=== PATIENT | male | born 1955 | race African-American/Black ===

== ENCOUNTER 2020-10-17 12:19 | Inpatient (IN) | payer OTHER, SELFPAY ==
[2020-10-17] VITALS (15 sets, daily range): BP systolic 114–137; BP diastolic 67–85; PULSE 86–122; RESP 20–37; TEMP 36.2–37.2; O2SAT 83–98; BMI 25.0
--- NOTE | ~2020-10-17 | XR_ITS ---
XR chest PICC line 10/23/2020 14:54 Indication: PICC line placement Procedure: AP portable chest Comparison: Comparison to multiple prior studies sequentially, with oldest reviewed study dated 10/17. Findings: There is a PICC line coiled in the left axilla. Small left apical pneumothorax. Pneumomedia stinum unchanged. Subcutaneous gas in the neck bilaterally. Diffuse bilateral airspace disease may re present pneumonia or edema. No significant effusion. Impression: 1: Left sided PICC line catheter coiled in the left axilla. 2: Otherwise, no significant change. Reviewed, dictated and finalized at location A. Impression: 1: Left sided PICC line catheter coiled in the left axilla. 2: Otherwise, no significant change.
--- NOTE | ~2020-10-17 | XR_ITS ---
EXAMINATION: XR chest 1V portable DATE: 10/24/2020 06:24 INDICATION: Shortness of breath TECHNIQUE: frontal view of the chest was obtained. COMPARISON: Chest radiograph dated 10/23/2020 FINDINGS: Unchanged small left apical pneumothorax. Small amount of pneumomediastinum as well as subcutaneous e mphysema projects over the bilateral neck and upper chest. No right-sided pneumothorax. Unchanged mil d bilateral patchy airspace opacities in the mid and lower lung zones. No pleural effusion. The cardi omediastinal silhouette is normal. IMPRESSION: 1. Unchanged pneumomediastinum, small left apical pneumothorax and subcutaneous gas at the bilateral neck and upper chest. 2. Unchanged patchy bilateral lung disease which could represent pneumonia, pulmonary edema, atelecta sis or some combination thereof. Reviewed, dictated and finalized at location A. IMPRESSION: 1. Unchanged pneumomediastinum, small left apical pneumothorax and subcutaneous gas at the bilateral neck and upper chest. 2. Unchanged patchy bilateral lung disease which could represent pneumonia, pul monary edema, atelectasis or some combination thereof.
--- NOTE | ~2020-10-17 | US_ITS ---
US abdomen limited DATE: 10/18/2020 08:30 INDICATION: Elevated liver function tests TECHNIQUE: Real-time imaging of liver, pancreas, gallbladder by portable technique COMPARISON: None FINDINGS: The pancreas is obscured by bowel gas. No hepatic space-occupying mass lesion is evident. Normal hepatopedal portal venous flow direction. Approximately 3 x 6 mm nondependent filling defect of the gallbladder, likely a polyp. There is an approximately 6 mm echogenic filling defect of the neck of the gallbladder with posterior shadowing, suggesting cholelithiasis. No gallbladder wall thickening or abnormal pericholecystic fluid collection is detected. Negative son ographic Mendez's sign. The common bile duct measures 5 mm, normal. IMPRESSION: Gallbladder polyp and probable cholelithiasis Reviewed, dictated and finalized at Location A. Reviewed, dictated and finalized at location A.
--- NOTE | ~2020-10-17 | XR_ITS ---
XR chest 1V portable 10/23/2020 13:06 Indication: Follow-up left pneumothorax Procedure: AP portable chest Comparison: Comparison to multiple prior studies sequentially, with oldest reviewed study dated 06/14. Findings: Small persistent left apical pneumothorax. Large pneumomediastinum with subcutaneous gas in the supraclavicular regions bilaterally. Diffuse bilateral airspace disease unchanged. No significan t effusion. Impression: 1: Stable small left apical pneumothorax. 2: Stable large pneumomediastinum. 3: Extensive diffuse bilateral airspace disease, compatible with pneumonia. Reviewed, dictated and finalized at location A. Impression: 1: Stable small left apical pneumothorax. 2: Stable large pneumomediastinum. 3: Extensive diffuse bilateral airspace disease, compatible with pneumonia.
--- NOTE | ~2020-10-17 | XR_ITS ---
EXAMINATION: XR chest 1V portable DATE: 10/28/2020 15:40 INDICATION: Pneumonia. TECHNIQUE: A single frontal view of the chest was obtained. COMPARISON: Chest single view 10/26/2020, chest CT 10/22/2020 FINDINGS: Again seen is pneumomediastinum. There is gas in the neck soft tissues bilaterally. There a re patchy airspace opacities throughout the lungs bilaterally. No pleural effusion or pneumothorax. T he heart size is normal. IMPRESSION: 1. Stable diffuse lung disease, consistent with COVID-19 pneumonia. 2. Stable pneumomediastinum and body wall subcutaneous emphysema. Reviewed, dictated and finalized at location A.
--- NOTE | ~2020-10-17 | XR_ITS ---
EXAMINATION: XR chest 1V portable EXAM DATE: 10/22/2020 15:02 INDICATION: pneumomediastinum TECHNIQUE: Portable AP frontal chest x-ray was obtained. Comparison is made to prior examination from 10/17/2020. FINDINGS: Development of large amount of pneumomediastinum extending into the neck. Groundglass airsp geraldine disease with relative sparing of the left upper lung zone, mild progression compared to prior antonio dy. Cardiomediastinal silhouette is normal. There is no pneumothorax suspected. There are no pleural effusions. IMPRESSION: 1. Large pneumomediastinum. 2. Moderate amount of confluent airspace disease bilaterally. Reviewed, dictated and finalized at location B.
--- NOTE | ~2020-10-17 | CT_ITS ---
EXAMINATION: CTA chest PE protocol EXAM DATE: 10/22/2020 12:42 INDICATION: R/o PE, cavitary lesion with + fungal. Shortness of breath. COVID pneumonia. TECHNIQUE: Spiral CTA of the chest (pulmonary arteries) was performed with 100 cc Omnipaque 350 intr avenous contrast injection. Images were acquired during the pulmonary arterial phase. Coronal maxi mum intensity projection 3D-reconstructions were created by the technologist on dedicated workstation . Axial, coronal and sagittal reformatted images were reviewed. The dose-length product (DLP) for t his examination was 705.91 mGy-cm. The exposure was tailored according to patient size (auto mA exp osure control), and iterative reconstruction (ASIR) was used as additional dose reduction technique. There is no prior study for comparison. FINDINGS: Significant limitations from respiratory motion. No pulmonary emboli within the main right and left pulmonary arteries. Otherwise cannot evaluate the arteries due to respiratory motion. There is massive amount of pneumomediastinum. No pneumothorax. There is diffuse bilateral groundglass airsp geraldine disease consistent with COVID pneumonia although other etiologies can cause similar appearance. No thoracic aortic dissection. There are no pleural or pericardial effusions. Small amount of low er lobe segmental bronchial debris. There is no mediastinal, hilar or axillary lymphadenopathy. Heart normal in size. There is mild coronary arterial calcification, arterial sclerosis. Upper abd omen is unremarkable. There is thoracic spondylosis without osteoblastic or osteolytic lesions iden tified. IMPRESSION: 1. Limited exam. No saddle embolus. 2. Massive pneumomediastinum. No pneumothorax. 3. Diffuse groundglass airspace disease consistent with COVID pneumonia. I discussed these findings with Teodora Bourne PA-C at 10/22/2020 13:16 CDT. Reviewed, dictated and finalized at location B.
--- NOTE | ~2020-10-17 | XR_ITS ---
XR chest 1V portable 10/23/2020 05:36 Indication: Pneumomediastinum Procedure: AP portable chest Comparison: Comparison to multiple prior studies sequentially, with oldest reviewed study dated 06/14. Findings: Large pneumomediastinum. There is subcutaneous gas in the neck bilaterally. Diffuse bilater al airspace disease, compatible with pneumonia. No significant effusion. Small left apical pneumothor ax. Impression: 1: Small left apical pneumothorax. 2: Large pneumomediastinum. 3: Diffuse bilateral airspace disease, compatible with pneumonia. Dr. eSa Adair discussed with the [facility] Suzanna steven, at 10/23/2020 06:44 CDT. Reviewed, dictated and finalized at location A. Impression: 1: Small left apical pneumothorax. 2: Large pneumomediastinum. 3: Diffuse bilateral airspace disease, compatible with pneumonia. Dr. Sea Adair discussed with the [facility] Suzanna steven, at 10/23/2020 06:44 CDT.
--- NOTE | ~2020-10-17 | XR_ITS ---
EXAMINATION: XR chest 1V portable DATE: 10/26/2020 06:01 INDICATION: COVID pneumonia and pneumomediastinum TECHNIQUE: frontal view of the chest was obtained. COMPARISON: Chest radiograph dated 10/25/2020 FINDINGS: The prior small left pneumothorax is decreased in size now nearly indiscernible at the apex. Pneumome diastinum and subcutaneous emphysema at the bilateral neck and supraclavicular regions is without sig nificant interval change. Also without significant interval change or patchy airspace opacities throu ghout both lungs relatively sparing the left upper lung zone. No pleural effusion or right-sided pneu mothorax. The cardiomediastinal silhouette is normal. IMPRESSION: 1. Near complete resolution of prior small left pneumothorax. 2. Persistent pneumomediastinum and subcutaneous emphysema at the bilateral neck and supraclavicular regions. 3. No significant change in diffuse bilateral lung disease relatively sparing the left upper lung whi ch could represent pneumonia, pulmonary edema, atelectasis or some combination thereof. Reviewed, dictated and finalized at location A. IMPRESSION: 1. Near complete resolution of prior small left pneumothorax. 2. Persistent pneumomediastinum and subcutaneous emphysema at the bilateral nec k and supraclavicular regions. 3. No significant change in diffuse bilateral lung disease relatively sparing t he left upper lung which could represent pneumonia, pulmonary edema, atelectasi s or some combination thereof.
--- NOTE | ~2020-10-17 | XR_ITS ---
EXAMINATION: XR chest 1V portable DATE: 10/25/2020 05:51 INDICATION: Pneumomediastinum TECHNIQUE: frontal view of the chest was obtained. COMPARISON: Chest radiograph dated 10/24/2020 FINDINGS: No significant interval change in a small left pneumothorax, pneumothorax and subcutaneous gas at the bilateral neck and supraclavicular regions. No significant change in groundglass and patchy airspace opacities throughout both lungs relatively sparing the left upper lung zone. No pleural effusion or right-sided pneumothorax. The cardiomediastinal silhouette is normal. IMPRESSION: 1. Unchanged pneumomediastinum, small left apical pneumothorax and subcutaneous gas at the lateral ne ck and supraclavicular regions. 2. Unchanged groundglass and patchy bilateral lung disease which could represent pneumonia, pulmonary edema, atelectasis or some combination thereof. Reviewed, dictated and finalized at location A. IMPRESSION: 1. Unchanged pneumomediastinum, small left apical pneumothorax and subcutaneous gas at the lateral neck and supraclavicular regions. 2. Unchanged groundglass and patchy bilateral lung disease which could represen t pneumonia, pulmonary edema, atelectasis or some combination thereof.
--- NOTE | ~2020-10-17 | XR_ITS ---
XR chest 1V portable DATE: 10/17/2020 12:38 INDICATION: Shortness of breath. Chest pain, fever. Covid-positive. TECHNIQUE: Portable AP chest on 10/17/2020 at 1233 hours COMPARISON: 06/14/2017 AP and lateral Chest FINDINGS: There are patchy infiltrates primarily in the mid and greater extent lower lung zones, most likely due to bilateral pneumonia given the fact that heart size is normal and the clinical history of fever. No pleural effusion or pneumothorax. No hilar or mediastinal enlargement. IMPRESSION: Bilateral pulmonary infiltrates, likely due to pneumonia Reviewed, dictated and finalized at location A.
--- NOTE | 2020-10-17 12:23 | ECG_ITS ---
Measurements Intervals [place] Rate: 111 P: 63 [place]: 185 QRS: 86 QRSD: 90 T: 28 QT: 303 QTc: 412 Interpretive Statements SINUS TACHYCARDIA NONCONDUCTED PREMATURE ATRIAL COMPLEX POSSIBLE LEFT ATRIAL ENLARGEMENT BORDERLINE T WAVE ABNORMALITY- INFERIOR LEADS BASELINE ARTIFACT- I, II, III, AVL, V4-V6 ABNORMAL ECG Electronically Signed On 10-17-2020 17:06:52 CDT by Godwin Mortensen D.O.
[2020-10-17 12:43] LABS: Basophils Percent Auto 0.2 % (0.2-1.2); Hematocrit 43.4 % (42.0-52.0); Hemoglobin 14.7 g/dL (14.0-18.0); Lymphocytes Absolute Auto 1.22 K/mm3 (0.9-3.2); Lymphocytes Percent Auto 11.8 % (18.3-44.2); Mean Corpuscular HGB Conc 33.9 g/dl (32-36); Mean Corpuscular Hemoglobin 27.3 pg (26-34); Mean Corpuscular Volume 80.7 fl (80-100); Mean Platelet Volume 12.8 fl (7.4-10.4); Monocytes Absolute Auto 0.6 K/mm3 (0.1-0.6); Monocytes Percent Auto 5.7 % (2.6-8.5); Neutrophils Absolute Auto 8.4 K/mm3 (1.3-6.7); Neutrophils Percent Auto 81.3 % (45.5-73.1); Platelet Count Result 179 k/mm3 (150-375); Red Blood Count 5.38 M/mm3 (4.6-6.20); Red Cell Distribution Width 13.4 % (11.5-14.5); White Blood Count 10.3 K/mm3 (4.5-10.0)
--- NOTE | 2020-10-17 12:45 | ED.SOB ---
HPI - SOB/Dyspnea General Chief Complaint: Shortness of Breath/Dyspnea Stated Complaint: diff breathing/covid Time Seen by Provider: 10/17/20 12:37 History of Present Illness HPI Narrative: 65 yo male w/ h/o polio, htn presents to the ED for SOB. He reports SOB for the past 2 weeks. Worsening. Positive home COVID test. RA O2 saturation 82% per EMS. No chest pain. Related Data Home Medications Medication Instructions Recorded Confirmed amlodipine 5 mg PO DAILY 10/17/20 Allergies Allergy/AdvReac Type Severity Reaction Status Date / Time No Known Allergies Allergy Verified 10/17/20 13:01 Review of Systems Review of Systems: ROS unobtainable: Yes unobtainable due to medical condition Constitutional: Constitutional: Reports weakness ENT: Denies sore throat Cardiovascular: Cardiovascular: Denies chest pain Respiratory: Respiratory: Reports chest congestion, Reports cough and Reports dyspnea Gastrointestinal: Gastrointestinal: Reports nausea Neurologic: Reports weakness PMFSH Past Medical History Medical History Hypertension Polio Social History Social History Social History: The patient lives in [place]. Smoking packs per day: 1 Smoking cigarettes per day: 20.0 Years smoked: 40 Smoking pack-years: 40.00 Smoking status: Former smoker Smoking end date: 01/25/17 Alcohol intake: never Substance use: never Gender identity (if verbalized by the patient): Male Spiritual care concerns: No Exam Const: General: alert and ill appearing Orientation/consciousness: patient oriented x3 Other: Moderate distress HENMT: Head: normal to inspection Resp: Effort & Inspection: labored and tachypneic Auscultation: crackles and diminished lung sounds Cardio: Rate: tachycardic Rhythm: regular rhythm GI: GI Palp: Yes Soft to palpation and No Tenderness to palpation present (GI) Skin: General skin exam: normal color Neuro: General: patient oriented x3, moves all extremities, no focal motor deficits and CN's II-XI intact bilaterally Extrem: General: normal to inspection and no edema Course Vital Signs Vital signs: Vital Signs Temperature 37.0 C 10/17/20 12:26 Pulse Rate 122 H 10/17/20 12:26 Respiratory Rate 37 H 10/17/20 12:26 Blood Pressure 114/83 10/17/20 12:26 Pulse Oximetry 83 L 10/17/20 12:26 Temperature 36.2 C L 10/17/20 15:17 Pulse Rate 110 H 10/17/20 15:42 Respiratory Rate 36 H 10/17/20 15:42 Blood Pressure 119/85 10/17/20 15:17 Pulse Oximetry 94 10/17/20 15:17 MDM - SOB/Dyspnea MDM Narrative Medical decision making narrative: All findings consistent with COVID-19. I am concerned about diaphragmatic weakness related to polio. Placed on BIPAP. Lab Data Result diagrams: 10/17/20 12:35 10/17/20 15:57 Labs: Lab Results 10/17/20 10/17/20 10/17/20 Range/Units 12:33 12:33 12:33 WBC (4.5-10.0) K/mm3 RBC (4.6-6.20) M/mm3 Hgb (14.0-18.0) g/dL Hct (42.0-52.0) % MCV (80-100) fl MCH (26-34) pg MCHC (32-36) g/dl RDW (11.5-14.5) % Plt Count (150-375) k/mm3 MPV (7.4-10.4) fl Immature Gran % (Auto) (0-0.5) % Neut % (Auto) (45.5-73.1) % Lymph % (Auto) (18.3-44.2) % [place] % (Auto) (2.6-8.5) % Eos % (Auto) (0-4.4) % Baso % (Auto) (0.2-1.2) % Lymph # (Auto) (0.9-3.2) K/mm3 [place] # (Auto) (0.1-0.6) K/mm3 Eos # (Auto) (0-0.3) K/mm3 Baso # (Auto) (0.0-0.1) K/mm3 Abs Immat Gran (auto) (0.00-0.031) K/mm3 Absolute Neuts (auto) (1.3-6.7) K/mm3 Absolute Nucleated RBC (0.0-0.012) K/mm3 Nucleated RBC % (0.0-0.2) % PT 12.7 (11.1-14.7) Seconds INR 1.0 APTT 29.1 (22.3-36.8) SECONDS D-Dimer (<0.48) ug/mL Methemoglobin (0-1.5) %THb Sodium 133 L (137-145) mmol/L
[2020-10-17] MEDS: ALBUTEROL SULFATE NEB 2.5 MG/0.5 ML INH 5 MG INHALATION (12:50)
[2020-10-17] MEDS: IPRATROPIUM BR 0.02% INH SOLN 0.5 MG/2.5 ML VIAL INHALATION (12:50)
[2020-10-17 12:55] LABS: Prothrombin Time 12.7 Seconds (11.1-14.7)
[2020-10-17 12:56] LABS: Lactic Acid Reflex 2.9 mmol/L (0.7-2.1); Partial Thromboplastin Time 29.1 SECONDS (22.3-36.8)
[2020-10-17 13:08] LABS: Troponin I < 0.012 ng/mL (0.000-0.034)
[2020-10-17 13:16] LABS: Alveolar/Arterial O2 Gradient 212.5 mmHg; Base Excess ABG -0.4 mEq/l (+/-2.0); Carboxyhemoglobin 0.7 % THb (0-2.0); Fractional Inspired Oxygen 44 %; HCO3 ABG 23.7 mEq/l (22.0-26.0); Methemoglobin ABG 0.4 %THb (0-1.5); Oxygen Content ABG 18.4 %vol (16.0-22.0); Oxygen Saturation ABG 91.1 % (95.0-100.0); Oxyhemoglobin 89.9 % THb (90.0-100.0); PCO2 ABG 37.3 mmHg (35.0-45.0); PO2 ABG 58.7 mmHg (80.0-100.0); PO2 FiO2 Ratio Arterial Blood 1.33 %; Total Hemoglobin 14.6 g/dL (12.0-18.0); pH ABG 7.421 (7.350-7.450)
[2020-10-17 13:16] LABS: Alanine Aminotransferase 124 U/L (4-50); Albumin Level 4.2 g/dL (3.5-5.1); Alkaline Phosphatase 81 U/L (38-126); Anion Gap 13 mmol/L (8-16); Aspartate Amino Transferase 370 U/L (17-59); Blood Urea Nitrogen 46 mg/dL (9-20); Calcium 9.8 mg/dL (8.4-10.2); Carbon Dioxide 26 mmol/L (22-30); Chloride 94 mmol/L (98-107); Estimated Glomerular Filt Rate > 60; Glucose 128 mg/dL (65-110); Lipase 201 U/L (23-300); Potassium 4.1 mmol/L (3.4-5.0); Sodium 133 mmol/L (137-145)
[2020-10-17 13:18] LABS: Device NASAL CANNULA; Site Drawn LEFT BRACHIAL
[2020-10-17 13:32] LABS: CRP 19.2 mg/dL (<1.0)
[2020-10-17 14:23] LABS: D Dimer 1.08 ug/mL (<0.48)
[2020-10-17] MEDS: DEXAMETHASONE SOD PHOS INJ 4 MG/ML VIAL 10 MG IV PUSH (14:29)
[2020-10-17 15:40] LABS: Reflex Lactic Acid Yes or No Add Lactic
--- NOTE | 2020-10-17 15:40 | ADMGEN ---
This patient, Yoan Wilkerson, was admitted to IMU Room 232-01 at 1541 on 10/17/2020. Patient/family oriented to hospital policies and general routines including ID bracelet, bed and alarms, visiting hours, pain management, procedures, bathroom and other care routines, personal items, smoking policy, room service/diet, and visiting hours. Information on how to activate the Rapid Response Team has been discussed. Patient/Family are encouraged to report perceived risks to care and to ask questions if they do not understand what they are told or what they should do.
[2020-10-17] MEDS: ENOXAPARIN 40 MG/0.4 ML SYRINGE SUB-Q (16:16)
[2020-10-17] MEDS: REMDESIVIR 200 MG/NS 250 ML 200 MG/250 ML BAG 250 MG IVPB (16:17)
[2020-10-17 16:18] LABS: Prothrombin Time 13.1 Seconds (11.1-14.7)
[2020-10-17 16:21] LABS: Alanine Aminotransferase 108 U/L (4-50); Estimated CRCL calculation 48 ml/min; Estimated Glomerular Filt Rate > 60
[2020-10-17 16:22] LABS: Lactic Acid 2.1 mmol/L (0.7-2.1)
--- NOTE | 2020-10-17 16:30 | PM.IMHP ---
H&P: HPI History of Present Illness Date/Time: 10/17/20 15:30 Chief Complaint: Shortness of breath. Narrative: This is a 70-year-old male with hypertension and history of polio who presented to the emergency department earlier today via EMS from home for evaluation of shortness of breath. He has not been feeling well for about 7 to 10 days with dry cough, subjective fever, sweats, body aches, and decreased smell and taste. His has similar symptoms and they both tested positive for COVID-19 on a home kit done 3 days ago. Unfortunately he has continued to have progressive shortness of breath to the point where it sounds like he was in respiratory extremis this morning. On EMS arrival he was unable to speak and his SpO2 was 77% on room air. He was started on BiPAP in the emergency department with improvement in his work of breathing and he is now on 15 L high-flow nasal cannula. He has not had any chest pain, nausea, vomiting, or diarrhea. The patient did not receive the COVID vaccine. Review of Systems Review of Systems: Narrative: Twelve systems were reviewed with pertinent positives and negatives as per HPI. He has had a mild headache. No significant sinus congestion, rhinorrhea, otalgia, or odynophagia. His smell and taste have started to return somewhat. No chest pain or pleuritic pain. He denies palpitations and racing heart. No lower extremity edema or calf pain. No history of venous thromboembolism. Except as documented, all other systems were reviewed and are negative. [facility] Past Medical History Medical History (Updated 10/18/20 @ 01:26 by Coty Kapoor PA-C) Gastroesophageal reflux disease Hypertension Polio Resultant right lower extremity weakness. Surgical History Surgical History (Updated 10/18/20 @ 01:19 by Coty Kapoor PA-C) History of appendectomy Family History Family History (Updated 10/18/20 @ 01:19 by Coty Kapoor PA-C) Other Hypertension Social History Social History (Updated 10/18/20 @ 01:20 by Coty Kapoor PA-C) Social History: The patient lives in [place] with his . 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 He has a 40 pack-year smoking history and quit in 2017. No alcohol or illicit substance abuse. He designates his , Mary Anne Wilkerson, as his surrogate decision maker and he wishes to be a full code. Smoking packs per day: 1 Smoking cigarettes per day: 20.0 Years smoked: 40 Smoking pack-years: 40.00 Smoking status: Former smoker Smoking end date: 01/25/17 Alcohol intake: never Substance use: never Gender identity (if verbalized by the patient): Male Spiritual care concerns: No Meds Home Medications and Allergies Home Medications Medication Instructions Recorded Confirmed Type No Home Medications 10/17/20 10/17/20 History Allergies Allergy/AdvReac Type Severity Reaction Status Date / Time No Known Allergies Allergy Verified 10/17/20 13:01 Vital Signs Vital Signs - 24 hr 10/17/20 12:26 10/17/20 12:48 10/17/20 13:05 Temperature 98.6 F 98.9 F Pulse Rate 122 H 115 H 114 H Respiratory Rate 37 H 29 H 32 H Blood Pressure 114/83 120/81 Pulse Oximetry 83 L 91 94 10/17/20 13:10 10/17/20 13:24 10/17/20 13:31 Temperature Pulse Rate 113 H 112 H 111 H Respiratory Rate 30 H 32 H 28 H Blood Pressure 117/75 Pulse Oximetry 95 10/17/20 14:31 10/17/20 15:02 10/17/20 15:17 Temperature 98.9 F 97.1 F L Pulse Rate 110 H 116 H 111 H Respiratory Rate 33 H 36 H 24 H Blood Pressure 123/81 119/85 Pulse Oximetry 95 98 94 Exam Narrative: Exam Narrative: General: Acutely ill-appearing male sitting up in bed. Weight: 72.5 kg. BMI: 25.0. HEENT: Normocephalic, atraumatic. PERRL, EOMI. Sclerae anicteric. On high-flow nasal cannula. Oral mucosa moist. Neck: Supple. No JVD or lymphadenopathy. Respiratory: Currently on 15 L high-flow nasal cannula. Mild conversational dyspnea,
[2020-10-17 21:23] LABS: Add Urine Microscopic? YES; Appearance Urine Clear (Clear); Bacteria Urine Trace /hpf; Bilirubin Urine Negative (Negative); Blood Urine 1+ (Negative); Color Urine Amber (Yellow); Glucose Urine UA Negative (Negative); Ketones Urine Negative (Negative); Leukocyte Esterase Ur Negative LEU/UL (Negative); Mucus Urine Moderate /lpf; Nitrate Urine Negative (Negative); Protein Urine 1+ mg/dL (Negative); RBC Urine 0-2 /hpf (0-2); Specific Grav Ur 1.027 (1.001-1.035); Squamous Epithelial Cell Urine Rare /hpf (Few)
[2020-10-17 22:04] LABS: Thyroid Stimulating Hormone Reflex 0.853 uIU/mL (0.465-4.68)
[2020-10-18] VITALS (26 sets, daily range): BP systolic 119–135; BP diastolic 75–84; PULSE 78–112; RESP 16–26; TEMP 36–36.7; O2SAT 86–100
[2020-10-18 04:57] LABS: Hematocrit 41.1 % (42.0-52.0); Hemoglobin 13.5 g/dL (14.0-18.0); Mean Corpuscular HGB Conc 32.8 g/dl (32-36); Mean Corpuscular Hemoglobin 27.1 pg (26-34); Mean Corpuscular Volume 82.5 fl (80-100); Mean Platelet Volume 12.6 fl (7.4-10.4); Platelet Count Result 151 k/mm3 (150-375); Red Blood Count 4.98 M/mm3 (4.6-6.20); Red Cell Distribution Width 13.9 % (11.5-14.5); White Blood Count 8.2 K/mm3 (4.5-10.0)
[2020-10-18 05:05] LABS: INR 0.9; Prothrombin Time 12.4 Seconds (11.1-14.7)
[2020-10-18 05:14] LABS: Alanine Aminotransferase 108 U/L (4-50); Albumin Level 3.7 g/dL (3.5-5.1); Alkaline Phosphatase 58 U/L (38-126); Anion Gap 11 mmol/L (8-16); Aspartate Amino Transferase 252 U/L (17-59); Bilirubin,Total 0.8 mg/dL (0.2-1.3); Blood Urea Nitrogen 52 mg/dL (9-20); Calcium 9.2 mg/dL (8.4-10.2); Carbon Dioxide 25 mmol/L (22-30); Chloride 98 mmol/L (98-107); Estimated CRCL calculation 52 ml/min; Estimated Glomerular Filt Rate > 60; Glucose 149 mg/dL (65-110); Lactate Dehydrogenase 1306 U/L (313-618); Magnesium 2.8 mg/dL (1.6-2.3); Potassium 5.1 mmol/L (3.4-5.0); Sodium 134 mmol/L (137-145)
[2020-10-18 05:22] LABS: Alanine Aminotransferase 111 U/L (4-50); Albumin Level 3.8 g/dL (3.5-5.1); Alkaline Phosphatase 57 U/L (38-126); Aspartate Amino Transferase 253 U/L (17-59); Bilirubin,Total 0.8 mg/dL (0.2-1.3)
[2020-10-18 06:42] LABS: CRP 17.5 mg/dL (<1.0)
[2020-10-18] MEDS: ENOXAPARIN 40 MG/0.4 ML SYRINGE SUB-Q ×2 (08:58→20:43)
[2020-10-18] MEDS: IPRATROPIUM BR 0.02% INH SOLN 0.5 MG/2.5 ML VIAL INHALATION ×3 (09:22→20:07)
[2020-10-18] MEDS: ALBUTEROL SULFATE NEB 2.5 MG/0.5 ML INH 5 MG INHALATION ×3 (09:22→20:07)
[2020-10-18] MEDS: REMDESIVIR 100 MG/NS 250 ML 100 MG/250 ML BAG 250 MG IVPB (11:05)
--- NOTE | 2020-10-18 18:09 | PM.IMPN ---
Progress Note: A&P Assessment and Plan (1) Bilateral pneumonia: Code(s): J18.9 - Pneumonia, unspecified organism <Vernell AMarlon Matthewsmus, PA-C - Last Filed: 10/19/20 07:25> Status: Acute <Vernell A. Cadmus, PA-C - Last Filed: 10/19/20 07:25> (2) Acute respiratory failure with hypoxia: Code(s): J96.01 - Acute respiratory failure with hypoxia <Vernell A. Cadmus, PA-C - Last Filed: 10/19/20 07:25> Status: Acute <Vernell A. Cadmus, PA-C - Last Filed: 10/19/20 07:25> Assessment and Plan: Likely COVID -Continue bipap and try to switch to airvo so pt can eat -Continue ceftriaxone, azithromycin, and remdesivir -await PCR -Wean o2 as tolerated <Vernell AMarlon Matthewsmus, PA-C - Last Filed: 10/19/20 07:25> (3) Person under investigation for COVID-19: Code(s): Z20.822 - Contact with and (suspected) exposure to COVID-19 <Vernell Nik. Byronmus, PA-C - Last Filed: 10/19/20 07:25> Status: Acute <Vernell A. Cadmus, PA-C - Last Filed: 10/19/20 07:25> Assessment and Plan: as above <Vernell A. Cadmus, PA-C - Last Filed: 10/19/20 07:25> (4) Elevated lactic acid level: Code(s): R79.89 - Other specified abnormal findings of blood chemistry <Vernell A. Cadmus, PA-C - Last Filed: 10/19/20 07:25> Status: Acute <Vernell A. Cadmus, PA-C - Last Filed: 10/19/20 07:25> Assessment and Plan: Resolved <Vernell A. Cadmus, PA-C - Last Filed: 10/19/20 07:25> (5) Hypertension: Code(s): I10 - Essential (primary) hypertension <Vernell A. Cadmus, PA-C - Last Filed: 10/19/20 07:25> Status: Acute <Vernell A. Cadmus, PA-C - Last Filed: 10/19/20 07:25> Assessment and Plan: Last bp 127/84 -not on any home meds for this, unclear if real dx <Vernell Rivera PA-C - Last Filed: 10/19/20 07:25> (6) Polio: Code(s): A80.9 - Acute poliomyelitis, unspecified <NAHEED RogersC - Last Filed: 10/19/20 07:25> Status: Acute <JOSE Rogers-C - Last Filed: 10/19/20 07:25> Assessment and Plan: hx of polio <Vernell Rivera PA-C - Last Filed: 10/19/20 07:25> (7) Elevated LFTs: Code(s): R79.89 - Other specified abnormal findings of blood chemistry <NAHEED RogersC - Last Filed: 10/19/20 07:25> Status: Acute <Vernell Rivera PA-C - Last Filed: 10/19/20 07:25> Assessment and Plan: Likely due to COVID -monitor -ruq us with stones but no signs of acute Cholecystitis or choledocholithiasis on imaging or exam -check hep panel <Vernell Rivera PA-C - Last Filed: 10/19/20 07:25> (8) Sepsis: Code(s): A41.9 - Sepsis, unspecified organism <Vernell Rivera PA-C - Last Filed: 10/19/20 07:25> Status: Acute <NAHEED RogersC - Last Filed: 10/19/20 07:25> Assessment and Plan: Due to above improving <Vernell Rivera PA-C - Last Filed: 10/19/20 07:25> Time Spent With Patient Time with patient: 25 - 35 minutes <Vernell Rivera PA-C - Last Filed: 10/19/20 07:25> Subjective Date/time seen: 10/18/20 18:09 <Vernell Rivera PA-C - Last Filed: 10/19/20 07:25> Interval history: Pt is a 65 y/o male here for COVID PNA. Pt was seen today on bipap and doing okay. He states he feel okay on the bipap but when it is taken off, he feels very SOB. He is very hungry as he hasn't been able to eat. He denies CP, nausea, vomiting, fevers, leg swelling, or abdominal pain. <Vernell Rivera PA-C - Last Filed: 10/19/20 07:25> Review of Systems Review of Systems: All systems reviewed & are unremarkable except as noted in HPI and below <Vernell Rivera PA-C - Last Filed: 10/19/20 07:25> Exam Narrative: Exam Narrative: General: Well developed well nourished patient in NAD HEENT: normocephalic, on bipap Neck: supple Neuro: Alert and oriented x4 CV:RRR Resp
[2020-10-19] VITALS (19 sets, daily range): BP systolic 110–136; BP diastolic 66–83; PULSE 70–103; RESP 16–24; TEMP 36.2–36.6; O2SAT 91–99; BMI 25.5
[2020-10-19] MEDS: ALBUTEROL SULFATE NEB 2.5 MG/0.5 ML INH 5 MG INHALATION ×4 (03:28→21:08)
[2020-10-19] MEDS: IPRATROPIUM BR 0.02% INH SOLN 0.5 MG/2.5 ML VIAL INHALATION ×4 (03:28→21:09)
[2020-10-19 05:43] LABS: Basophils Absolute Auto 0.1 K/mm3 (0.0-0.1); Basophils Percent Auto 0.8 % (0.2-1.2); Hematocrit 41.9 % (42.0-52.0); Hemoglobin 13.8 g/dL (14.0-18.0); Immature Granulocyte Absolute 0.54 K/mm3 (0.00-0.031); Immature Granulocyte Percent A 3.5 % (0-0.5); Lymphocytes Absolute Auto 1.15 K/mm3 (0.9-3.2); Lymphocytes Percent Auto 7.5 % (18.3-44.2); Mean Corpuscular HGB Conc 32.9 g/dl (32-36); Mean Corpuscular Hemoglobin 27.5 pg (26-34); Mean Corpuscular Volume 83.5 fl (80-100); Mean Platelet Volume 12.1 fl (7.4-10.4); Monocytes Percent Auto 6.3 % (2.6-8.5); Neutrophils Absolute Auto 12.5 K/mm3 (1.3-6.7); Neutrophils Percent Auto 81.9 % (45.5-73.1); Platelet Count Result 237 k/mm3 (150-375); Red Blood Count 5.02 M/mm3 (4.6-6.20); Red Cell Distribution Width 13.8 % (11.5-14.5); White Blood Count 15.3 K/mm3 (4.5-10.0)
[2020-10-19 05:55] LABS: INR 1.1; Prothrombin Time 14.3 Seconds (11.1-14.7)
[2020-10-19 06:00] LABS: Alanine Aminotransferase 99 U/L (4-50); Albumin Level 3.7 g/dL (3.5-5.1); Alkaline Phosphatase 64 U/L (38-126); Anion Gap 8 mmol/L (8-16); Aspartate Amino Transferase 144 U/L (17-59); Bilirubin,Total 0.7 mg/dL (0.2-1.3); Blood Urea Nitrogen 54 mg/dL (9-20); CRP 8.8 mg/dL (<1.0); Calcium 9.2 mg/dL (8.4-10.2); Carbon Dioxide 26 mmol/L (22-30); Chloride 101 mmol/L (98-107); Estimated CRCL calculation 56 ml/min; Estimated Glomerular Filt Rate > 60; Glucose 142 mg/dL (65-110); Magnesium 2.9 mg/dL (1.6-2.3); Potassium 4.4 mmol/L (3.4-5.0); Sodium 135 mmol/L (137-145)
[2020-10-19 06:53] LABS: Hepatitis B Surface Antigen Negative (Negative)
[2020-10-19 06:59] LABS: HAV RESULT Negative (Negative); Hepatitis B Core IgM Result Negative (Negative)
[2020-10-19 07:10] LABS: Hepatitis C Virus Antibody Negative (Negative)
--- NOTE | 2020-10-19 09:38 | PM.IMPN ---
Progress Note: A&P Assessment and Plan (1) Bilateral pneumonia: Code(s): J18.9 - Pneumonia, unspecified organism <Vernell Rivera PA-C - Last Filed: 10/19/20 09:52> Status: Acute <Vernellky Rivera, PA-C - Last Filed: 10/19/20 09:52> Assessment and Plan: Likely COVID - Continue Airvo. currently on 50 L -Continue ceftriaxone, azithromycin, and remdesivir -await PCR -Wean o2 as tolerated -Tocilizumeb if COVID PCR +. Will discuss risk and benefits with patient <Vernell Rivera PA-C - Last Filed: 10/19/20 09:52> (2) Acute respiratory failure with hypoxia: Code(s): J96.01 - Acute respiratory failure with hypoxia <Vernellky Rivera PA-C - Last Filed: 10/19/20 09:52> Status: Acute <Vernellky Rivera PA-C - Last Filed: 10/19/20 09:52> Assessment and Plan: 2/2 to above -wean o2 as tolerated <Vernellky Rivera PA-C - Last Filed: 10/19/20 09:52> (3) Person under investigation for COVID-19: Code(s): Z20.822 - Contact with and (suspected) exposure to COVID-19 <Vernell Rivera PA-C - Last Filed: 10/19/20 09:52> Status: Acute <Vernell AMarlon Rivera PA-C - Last Filed: 10/19/20 09:52> Assessment and Plan: as above <Vernell AMarlon Rivera, PA-C - Last Filed: 10/19/20 09:52> (4) Elevated lactic acid level: Code(s): R79.89 - Other specified abnormal findings of blood chemistry <Vernell AMarlon Matthewsmus PA-C - Last Filed: 10/19/20 09:52> Status: Acute <Vernell AMarlon Matthewsmus, PA-C - Last Filed: 10/19/20 09:52> Assessment and Plan: Resolved <Vernell AMarlon Matthewsmansi PA-C - Last Filed: 10/19/20 09:52> (5) Hypertension: Code(s): I10 - Essential (primary) hypertension <Vernell Farias DOTTY Rivera - Last Filed: 10/19/20 09:52> Status: Acute <Vernell MatthewsDOTTY nazario - Last Filed: 10/19/20 09:52> Assessment and Plan: Last bp 124/74 - patient used to be on amlodipine but stop doing this as he is doing holistic medicine and taking apple cider vinegar to treat his hypertension <Vernell Farias DOTTY Rivera - Last Filed: 10/19/20 09:52> (6) Polio: Code(s): A80.9 - Acute poliomyelitis, unspecified <Vernell Farias DOTTY Rivera - Last Filed: 10/19/20 09:52> Status: Acute <Vernell Farias DOTTY Rivera - Last Filed: 10/19/20 09:52> Assessment and Plan: hx of polio <Vernell Dinora DOTTY Rivera - Last Filed: 10/19/20 09:52> (7) Elevated LFTs: Code(s): R79.89 - Other specified abnormal findings of blood chemistry <Vernell Farias DOTTY Rivera - Last Filed: 10/19/20 09:52> Status: Acute <Vernell Farias DOTTY Rivera - Last Filed: 10/19/20 09:52> Assessment and Plan: Likely due to COVID -monitor -ruq us with stones but no signs of acute Cholecystitis or choledocholithiasis on imaging or exam. Patient is eating and drinking - hepatitis panel negative - trending down <Vernell Farias DOTTY Rivera - Last Filed: 10/19/20 09:52> (8) Sepsis: Code(s): A41.9 - Sepsis, unspecified organism <Vernell Farias DOTTY Rivera - Last Filed: 10/19/20 09:52> Status: Acute <Vernell Farias DOTTY Rivera - Last Filed: 10/19/20 09:52> Assessment and Plan: Due to above improving <Vernell Rivera PA-C - Last Filed: 10/19/20 09:52> Subjective Date/time seen: 10/19/20 09:38 <Vernell Rivera PA-C - Last Filed: 10/19/20 09:52> Interval history: Pt is a 65 y/o male here for COVID PNA. Pt was seen today on Airvo. patient has no complaints of shortness of breath today. He has not been out of bed. He is very hungry and did not enjoy his dinner last night. He denies CP, nausea, vomiting, fevers, leg swelling, or abdominal pain. He has not had a bowel movement in 7 days and has no smell or taste which is causing him to have a low appetite <Vernell Rivera PA-C - Last Filed: 10/19/20 09:52> Exam Narrative: E
[2020-10-19 10:11] LABS: Lactate Dehydrogenase 956 U/L (313-618)
[2020-10-19] MEDS: ENOXAPARIN 40 MG/0.4 ML SYRINGE SUB-Q ×2 (10:11→20:25)
[2020-10-19] MEDS: REMDESIVIR 100 MG/NS 250 ML 100 MG/250 ML BAG 250 MG IVPB (10:12)
[2020-10-19 10:48] LABS: Hemoglobin A1C 5.9 % (<5.7)
[2020-10-20] VITALS (21 sets, daily range): BP systolic 109–133; BP diastolic 67–90; PULSE 78–120; RESP 18–22; TEMP 36.2–36.8; O2SAT 88–97
[2020-10-20] MEDS: IPRATROPIUM BR 0.02% INH SOLN 0.5 MG/2.5 ML VIAL INHALATION ×3 (02:26→15:10)
[2020-10-20] MEDS: ALBUTEROL SULFATE NEB 2.5 MG/0.5 ML INH 5 MG INHALATION ×3 (02:26→15:10)
[2020-10-20 05:51] LABS: Hematocrit 35.2 % (42.0-52.0); Hemoglobin 12.1 g/dL (14.0-18.0); Mean Corpuscular HGB Conc 34.4 g/dl (32-36); Mean Corpuscular Hemoglobin 27.5 pg (26-34); Mean Platelet Volume 12.2 fl (7.4-10.4); Platelet Count Result 288 k/mm3 (150-375); White Blood Count 16.5 K/mm3 (4.5-10.0)
[2020-10-20 05:58] LABS: INR 1.2; Prothrombin Time 14.6 Seconds (11.1-14.7)
[2020-10-20 06:34] LABS: Alanine Aminotransferase 80 U/L (4-50); Estimated CRCL calculation 62 ml/min; Estimated Glomerular Filt Rate > 60
[2020-10-20 08:31] LABS: Anion Gap 11 mmol/L (8-16); Blood Urea Nitrogen 50 mg/dL (9-20); CRP 4.2 mg/dL (<1.0); Calcium 9.1 mg/dL (8.4-10.2); Carbon Dioxide 23 mmol/L (22-30); Chloride 103 mmol/L (98-107); Estimated CRCL calculation 68 ml/min; Estimated Glomerular Filt Rate > 60; Glucose 132 mg/dL (65-110); Potassium 4.4 mmol/L (3.4-5.0); Sodium 137 mmol/L (137-145)
[2020-10-20] MEDS: ENOXAPARIN 40 MG/0.4 ML SYRINGE SUB-Q ×2 (10:03→22:04)
[2020-10-20] MEDS: REMDESIVIR 100 MG/NS 250 ML 100 MG/250 ML BAG 250 MG IVPB (10:36)
--- NOTE | 2020-10-20 14:49 | PM.IMPN ---
Progress Note: A&P Assessment and Plan (1) Bilateral pneumonia: Code(s): J18.9 - Pneumonia, unspecified organism Status: Acute Assessment and Plan: Likely COVID - Continue Airvo. currently on 50 L -Continue ceftriaxone, azithromycin, and remdesivir -await PCR -consider toxcilizumab if +. He wants to talk to his daughter about this medication before agreeing to it. He does not want plasma -Wean o2 as tolerated (2) Acute respiratory failure with hypoxia: Code(s): J96.01 - Acute respiratory failure with hypoxia Status: Acute Assessment and Plan: 2/2 to above -wean o2 as tolerated (3) Person under investigation for COVID-19: Code(s): Z20.822 - Contact with and (suspected) exposure to COVID-19 Status: Acute Assessment and Plan: as above (4) Elevated lactic acid level: Code(s): R79.89 - Other specified abnormal findings of blood chemistry Status: Acute Assessment and Plan: Resolved (5) Hypertension: Code(s): I10 - Essential (primary) hypertension Status: Acute Assessment and Plan: Last bp 123/76 - patient used to be on amlodipine but stop doing this as he is doing holistic medicine and taking apple cider vinegar to treat his hypertension (6) Polio: Code(s): A80.9 - Acute poliomyelitis, unspecified Status: Acute Assessment and Plan: hx of polio (7) Elevated LFTs: Code(s): R79.89 - Other specified abnormal findings of blood chemistry Status: Acute Assessment and Plan: Likely due to COVID -monitor -ruq us with stones but no signs of acute Cholecystitis or choledocholithiasis on imaging or exam. Patient is eating and drinking - hepatitis panel negative - trending down (8) Sepsis: Code(s): A41.9 - Sepsis, unspecified organism Status: Acute Assessment and Plan: Due to above improving Subjective Date/time seen: 10/20/20 14:49 Interval history: Pt is a 65 y/o male here for COVID PNA. Pt was seen today on Airvo. Patient states he is feeling better every day. he worked with therapy today and felt SOB but overall feelign better. He denies CP, nausea, vomiting, fevers, leg swelling, or abdominal pain. We discussed tocilizumab and plasma. He does not want plasma. He still has not had a bowel movement in 7 days and has no smell or taste which is causing him to have a low appetite Exam Narrative: Exam Narrative: General: Well developed well nourished patient in NAD HEENT: normocephalic, on airvo Neck: supple Neuro: Alert and oriented x4 CV:RRR. tele with normal sinus rhythm with occasional saturations at 85%. He was talking to me with says 94% O2 sat. No conversational dyspnea Resp: decreased breath sounds bilateral with some mild crackles at the bases. Abd: Soft, non distended. No pain to palpation. Positive bowel sounds Extremities: No swelling, erythema, or pain to palpation. Objective Data Vital Signs Vital Signs: Vital Signs - 24 hr 10/19/20 16:00 10/19/20 18:00 10/19/20 20:00 Temperature 97.5 F L 97.9 F Pulse Rate 79 81 99 Respiratory Rate 24 H 20 Blood Pressure 110/78 136/66 Pulse Oximetry 91 96 10/19/20 21:09 10/19/20 21:21 10/19/20 21:22 Temperature Pulse Rate 87 92 Respiratory Rate 18 18 Blood Pressure Pulse Oximetry 96 10/19/20 22:00 10/20/20 00:00 10/20/20 02:00 Temperature 97.8 F Pulse Rate 103 H 95 84 Respiratory Rate 20 Blood Pressure 109/83 Pulse Oximetry 95 10/20/20 02:26 10/20/20 02:37 10/20/20 04:00 Temperature 97.9 F Pulse Rate 82 79 Respiratory Rate 18 20 Blood Pressure 117/75 Pulse Oximetry 95 97 10/20/20 06:00 10/20/20 08:00 10/20/20 10:00 Temperature 97.1 F L Pulse Rate 100 94 102 H Respiratory Rate 20 Blood Pressure 122/77 Pulse Oximetry 90 10/20/20 10:09 10/20/20 10:22 10/20/20 11:46 Temperature 98.2 F Pu
[2020-10-20 15:38] LABS: SARS-CoV-2 RNA PCR Positive
[2020-10-20 15:46] LABS: Anion Gap 8 mmol/L (8-16); Blood Urea Nitrogen 43 mg/dL (9-20); CRP 3.9 mg/dL (<1.0); Calcium 8.7 mg/dL (8.4-10.2); Carbon Dioxide 24 mmol/L (22-30); Chloride 103 mmol/L (98-107); Estimated CRCL calculation 68 ml/min; Estimated Glomerular Filt Rate > 60; Glucose 151 mg/dL (65-110); Potassium 4.6 mmol/L (3.4-5.0); Sodium 135 mmol/L (137-145)
[2020-10-20] MEDS: SENNOSIDES 8.6 MG TABLET PO (22:04)
[2020-10-21] VITALS (23 sets, daily range): BP systolic 126–143; BP diastolic 71–83; PULSE 80–111; RESP 18–24; TEMP 36.4–36.6; O2SAT 88–98
[2020-10-21] MEDS: ALBUTEROL SULFATE NEB 2.5 MG/0.5 ML INH 5 MG INHALATION ×4 (03:11→20:23)
[2020-10-21] MEDS: IPRATROPIUM BR 0.02% INH SOLN 0.5 MG/2.5 ML VIAL INHALATION ×4 (03:12→20:23)
[2020-10-21 04:22] LABS: Basophils Absolute Auto 0.1 K/mm3 (0.0-0.1); Basophils Percent Auto 0.4 % (0.2-1.2); Eosinophils Percent Auto 0.1 % (0-4.4); Hematocrit 32.6 % (42.0-52.0); Hemoglobin 10.8 g/dL (14.0-18.0); Immature Granulocyte Absolute 0.68 K/mm3 (0.00-0.031); Immature Granulocyte Percent A 5.7 % (0-0.5); Lymphocytes Absolute Auto 1.25 K/mm3 (0.9-3.2); Lymphocytes Percent Auto 10.4 % (18.3-44.2); Mean Corpuscular HGB Conc 33.1 g/dl (32-36); Mean Corpuscular Hemoglobin 27.1 pg (26-34); Mean Corpuscular Volume 81.9 fl (80-100); Mean Platelet Volume 11.7 fl (7.4-10.4); Monocytes Absolute Auto 0.9 K/mm3 (0.1-0.6); Monocytes Percent Auto 7.2 % (2.6-8.5); Neutrophils Absolute Auto 9.1 K/mm3 (1.3-6.7); Neutrophils Percent Auto 76.2 % (45.5-73.1); Nucleated Red Blood Cells Perc 0.2 % (0.0-0.2); Platelet Count Result 283 k/mm3 (150-375); Red Blood Count 3.98 M/mm3 (4.6-6.20); Red Cell Distribution Width 13.2 % (11.5-14.5)
[2020-10-21 04:39] LABS: INR 1.2; Prothrombin Time 14.7 Seconds (11.1-14.7)
[2020-10-21 04:41] LABS: Anion Gap 7 mmol/L (8-16); Blood Urea Nitrogen 33 mg/dL (9-20); CRP 3.7 mg/dL (<1.0); Calcium 8.9 mg/dL (8.4-10.2); Carbon Dioxide 26 mmol/L (22-30); Chloride 105 mmol/L (98-107); Estimated CRCL calculation 76 ml/min; Estimated Glomerular Filt Rate > 60; Glucose 155 mg/dL (65-110); Lactate Dehydrogenase 788 U/L (313-618); Magnesium 2.6 mg/dL (1.6-2.3); Potassium 4.4 mmol/L (3.4-5.0); Sodium 138 mmol/L (137-145)
[2020-10-21 07:31] LABS: Alanine Aminotransferase 71 U/L (4-50)
[2020-10-21] MEDS: ENOXAPARIN 40 MG/0.4 ML SYRINGE SUB-Q ×2 (08:22→20:49)
[2020-10-21] MEDS: REMDESIVIR 100 MG/NS 250 ML 100 MG/250 ML BAG 250 MG IVPB (11:43)
--- NOTE | 2020-10-21 13:24 | PCDIET ---
Nutrition Follow-Up Complete: Nutrition Diganosis: Inadequate oral intake related to decreased appetite and altered taste as evidenced by minimal intake x 1 week with presumed weight loss, per patient. Nutrition Goal: Patient to consume 50% of meals/supplements or greater. Goal met. Patient consumed an average of 75% of recorded meals since 10/19/20 on regular diet. Spoke with patient via phone due to COVID precautions. Patient reports appetite has improved and does not wish to receive any more nutritional supplements, as he has not been drinking them and is eating better. Last recorded weight is 73.6 kg which is down from last review. +I/O. Bowel Motility: No documented BM. Miralax and Senna continued. If medically appropriate, would consider another medication to promote BM. Labs Reviewed: WBC (12.0), RBC (3.98), Hgb (10.8), Hct (32.6), Glu (155), BUN (33) Meds Noted: Albuterol, Rocephin, Decadron, Atrovent, Zithromax, Miralax, Senna Additional Notes: No documented skin breakdown. Will continue to monitor with same goal. Nutrition Monitoring and Evaluation: Follow up every 5 days.
--- NOTE | 2020-10-21 17:41 | PM.IMPN ---
Progress Note: A&P Assessment and Plan (1) Bilateral pneumonia: Code(s): J18.9 - Pneumonia, unspecified organism Status: Acute Assessment and Plan: Likely COVID - Continue Airvo and wean as tolerated -Continue ceftriaxone, azithromycin, lovenox and will extend remdesivir by another 5 days -await PCR -consider toxcilizum if CRP is over 7.5 -Wean o2 as tolerated (2) Acute respiratory failure with hypoxia: Code(s): J96.01 - Acute respiratory failure with hypoxia Status: Acute Assessment and Plan: 2/2 to above -wean o2 as tolerated (3) Person under investigation for COVID-19: Code(s): Z20.822 - Contact with and (suspected) exposure to COVID-19 Status: Acute Assessment and Plan: as above (4) Elevated lactic acid level: Code(s): R79.89 - Other specified abnormal findings of blood chemistry Status: Acute Assessment and Plan: Resolved (5) Hypertension: Code(s): I10 - Essential (primary) hypertension Status: Acute Assessment and Plan: Last bp 127/75 - patient used to be on amlodipine but stop doing this as he is doing holistic medicine and taking apple cider vinegar to treat his hypertension (6) Polio: Code(s): A80.9 - Acute poliomyelitis, unspecified Status: Acute Assessment and Plan: hx of polio (7) Elevated LFTs: Code(s): R79.89 - Other specified abnormal findings of blood chemistry Status: Acute Assessment and Plan: Likely due to COVID -monitor -ruq us with stones but no signs of acute Cholecystitis or choledocholithiasis on imaging or exam. Patient is eating and drinking - hepatitis panel negative - trending down (8) Sepsis: Code(s): A41.9 - Sepsis, unspecified organism Status: Acute Assessment and Plan: Due to above improving (9) Pneumonia due to COVID-19 virus: Code(s): U07.1 - COVID-19; J12.82 - Pneumonia due to coronavirus disease 2019 Status: Acute Assessment and Plan: As above Subjective Date/time seen: 10/21/20 17:41 Interval history: Pt is a 65 y/o male here for COVID PNA. Pt was seen today on Airvo. Patient states he is feeling better every day and his appetite has increased. he said the chair today and did exercises. He denies CP, nausea, vomiting, fevers, leg swelling, or abdominal pain. We discussed tocilizumab and plasma. for now, he no longer qualifies for tocilizumab and he is okay with this. He does not want plasma. He still has not had a bowel movement Exam Narrative: General: Well developed well nourished patient in NAD HEENT: normocephalic, on airvo Neck: supple Neuro: Alert and oriented x4 CV:RRR. tele with normal sinus rhythm with occasional saturations at 85%. He was talking to me with says 92% O2 sat. No conversational dyspnea Resp: decreased breath sounds bilateral with some mild crackles at the bases. Abd: Soft, non distended. No pain to palpation. Positive bowel sounds Extremities: No swelling, erythema, or pain to palpation. Objective Data Vital Signs Vital Signs: Vital Signs - 24 hr 10/20/20 18:00 10/20/20 20:00 10/20/20 22:00 Temperature 97.8 F Pulse Rate 99 89 96 Respiratory Rate 20 Blood Pressure 133/90 Pulse Oximetry 94 10/20/20 23:25 10/21/20 00:00 10/21/20 02:00 Temperature 97.6 F Pulse Rate 95 86 Respiratory Rate 18 Blood Pressure 128/73 Pulse Oximetry 94 94 10/21/20 03:12 10/21/20 03:13 10/21/20 03:19 Temperature Pulse Rate 80 84 Respiratory Rate 20 22 H Blood Pressure Pulse Oximetry 91 10/21/20 04:00 10/21/20 06:00 10/21/20 08:00 Temperature 97.5 F L 97.6 F Pulse Rate 87 80 91 Respiratory Rate 18 18 Blood Pressure 130/79 126/78 Pulse Oximetry 92 90 10/21/20 08:31 10/21/20 08:40 10/21/20 10:00 Temperature Pulse Rate 97 93 97 Respiratory Rate 20 20 Blood Pressure P
[2020-10-21] MEDS: SENNOSIDES 8.6 MG TABLET PO (20:49)
[2020-10-22] VITALS (26 sets, daily range): BP systolic 97–125; BP diastolic 58–84; PULSE 86–128; RESP 18–24; TEMP 36.4–37; O2SAT 90–99
[2020-10-22] MEDS: IPRATROPIUM BR 0.02% INH SOLN 0.5 MG/2.5 ML VIAL INHALATION ×4 (03:00→20:43)
[2020-10-22] MEDS: ALBUTEROL SULFATE NEB 2.5 MG/0.5 ML INH 5 MG INHALATION ×2 (03:00→08:56)
[2020-10-22 04:44] LABS: Hemoglobin 9.6 g/dL (14.0-18.0); Mean Corpuscular HGB Conc 33.1 g/dl (32-36); Mean Corpuscular Hemoglobin 27.2 pg (26-34); Mean Corpuscular Volume 82.2 fl (80-100); Mean Platelet Volume 11.4 fl (7.4-10.4); Platelet Count Result 283 k/mm3 (150-375); Red Blood Count 3.53 M/mm3 (4.6-6.20); Red Cell Distribution Width 13.5 % (11.5-14.5); White Blood Count 19.7 K/mm3 (4.5-10.0)
[2020-10-22 05:26] LABS: Alanine Aminotransferase 61 U/L (4-50); Albumin Level 2.7 g/dL (3.5-5.1); Alkaline Phosphatase 46 U/L (38-126); Anion Gap 5 mmol/L (8-16); Aspartate Amino Transferase 59 U/L (17-59); Bilirubin,Total 0.5 mg/dL (0.2-1.3); Blood Urea Nitrogen 33 mg/dL (9-20); CRP 4.3 mg/dL (<1.0); Calcium 8.6 mg/dL (8.4-10.2); Carbon Dioxide 26 mmol/L (22-30); Chloride 105 mmol/L (98-107); Estimated CRCL calculation 76 ml/min; Estimated Glomerular Filt Rate > 60; Glucose 118 mg/dL (65-110); Potassium 4.6 mmol/L (3.4-5.0); Sodium 136 mmol/L (137-145)
[2020-10-22] MEDS: ENOXAPARIN 40 MG/0.4 ML SYRINGE SUB-Q ×2 (08:26→21:54)
[2020-10-22 08:57] LABS: Iron 50 ug/dL (49-181)
[2020-10-22 09:05] LABS: Transferrin 129 mg/dL (206-381)
[2020-10-22 09:06] LABS: Percent Iron Saturation 26 % (20-50)
[2020-10-22 09:07] LABS: INR 1.1; Prothrombin Time 14.2 Seconds (11.1-14.7)
[2020-10-22] MEDS: PANTOPRAZOLE SODIUM IV 40 MG VIAL IV PUSH ×2 (10:22→21:54)
[2020-10-22] MEDS: REMDESIVIR 100 MG/NS 250 ML 100 MG/250 ML BAG 250 MG IVPB (10:22)
[2020-10-22 10:25] LABS: Folic Acid 7.9 ng/mL (2.76->20); Vitamin B12 > 1000.0 pg/mL (239-931)
--- NOTE | 2020-10-22 10:57 | PM.IMPN ---
Progress Note: A&P Assessment and Plan (1) Bilateral pneumonia: Code(s): J18.9 - Pneumonia, unspecified organism <Teodora Morales DOTTY Bourne - Last Filed: 10/22/20 14:48> Status: Acute <Teodora L. TaylaNAHEEDC - Last Filed: 10/22/20 14:48> Assessment and Plan: POSTIVE COVID PCR 10/17/20 - Continue Airvo and wean as tolerated - Continue ceftriaxone, azithromycin, lovenox, dexamethosone and will extend remdesivir by another 5 days - The patient is in agreement to receive plasma today to see if it helps with his symptoms - consider toxcilizum if CRP is over 7.5 - Wean o2 as tolerated <Teodora Suzanne. NAHEED BourneC - Last Filed: 10/22/20 14:48> (2) COVID: Code(s): U07.1 - COVID-19 <Teodora Morales NAHEED BourneC - Last Filed: 10/22/20 14:48> Status: Acute <Teodora Suzanne. NAHEED BourneC - Last Filed: 10/22/20 14:48> Assessment and Plan: See above <Teodora Suzanne. NAHEED BourneC - Last Filed: 10/22/20 14:48> (3) Acute respiratory failure with hypoxia: Code(s): J96.01 - Acute respiratory failure with hypoxia <Teodora Suzanne. JOSE Bourne-C - Last Filed: 10/22/20 14:48> Status: Acute <Teodora L. NAHEED BourneC - Last Filed: 10/22/20 14:48> Assessment and Plan: 2/2 to above -wean o2 as tolerated <Teodora Suzanne. JOSE Bourne-C - Last Filed: 10/22/20 14:48> (4) Elevated lactic acid level: Code(s): R79.89 - Other specified abnormal findings of blood chemistry <Teodora Suzanne. NAHEED BourneC - Last Filed: 10/22/20 14:48> Status: Acute <Teodora L. NAHEED BourneC - Last Filed: 10/22/20 14:48> Assessment and Plan: Resolved <Teodora L. DOTTY Bourne - Last Filed: 10/22/20 14:48> (5) Hypertension: Code(s): I10 - Essential (primary) hypertension <Teodora Morales DOTTY Bourne - Last Filed: 10/22/20 14:48> Status: Acute <Teodora Moralse DOTTY Bourne - Last Filed: 10/22/20 14:48> Assessment and Plan: Last bp 121/58 - patient used to be on amlodipine but stop doing this as he is doing holistic medicine and taking apple cider vinegar to treat his hypertension <Teodora Bourne PA-C - Last Filed: 10/22/20 14:48> (6) Polio: Code(s): A80.9 - Acute poliomyelitis, unspecified <Teodora Morales DOTTY Bourne - Last Filed: 10/22/20 14:48> Status: Acute <Teodora SuzanneMarlon Bourne PA-C - Last Filed: 10/22/20 14:48> Assessment and Plan: hx of polio <Teodora Carmen DOTTY Bourne - Last Filed: 10/22/20 14:48> (7) Elevated LFTs: Code(s): R79.89 - Other specified abnormal findings of blood chemistry <Teodora L. DOTTY Bourne - Last Filed: 10/22/20 14:48> Status: Acute <Teodoar L. DOTTY Bourne - Last Filed: 10/22/20 14:48> Assessment and Plan: Likely due to COVID -monitor -ruq us with stones but no signs of acute Cholecystitis or choledocholithiasis on imaging or exam. Patient is eating and drinking - hepatitis panel negative - trending down <Teodora SuzanneMarlon Bourne PA-C - Last Filed: 10/22/20 14:48> (8) Sepsis: Code(s): A41.9 - Sepsis, unspecified organism <Teodora Morales DOTTY Bourne - Last Filed: 10/22/20 14:48> Status: Acute <Teodora L. DOTTY Bourne - Last Filed: 10/22/20 14:48> Assessment and Plan: Due to above improving <Teodora Bourne PA-C - Last Filed: 10/22/20 14:48> (9) Pneumonia due to COVID-19 virus: Code(s): U07.1 - COVID-19; J12.82 - Pneumonia due to coronavirus disease 2019 <Teodora Bourne PA-C - Last Filed: 10/22/20 14:48> Status: Acute <Teodora Bourne PA-C - Last Filed: 10/22/20 14:48> Assessment and Plan: As above <Teodora Bourne PA-C - Last Filed: 10/22/20 14:48> Time Spent With Patient Time with patient: 25 - 35 minutes <Teodora Bourne PA-C - Last Filed: 10/22/20 14:48> Subjective Date/time seen: 10/22/20 10:57 <Juno Malik
[2020-10-22] MEDS: SODIUM CHLORIDE 0.9% IV 500 ML 100 ML IV CONT (15:29)
[2020-10-22] MEDS: SODIUM CHLORIDE 0.9% IV 250 ML 30 ML IV CONT (17:35)
[2020-10-22] MEDS: TUBING, BLOOD PLUM PUMP TUBING 1 EACH XX (17:35)
--- NOTE | 2020-10-22 17:40 | PM.CNPUL ---
Assessment and Plan Assessment and plan (1) Pneumonia due to COVID-19 virus: Code(s): U07.1 - COVID-19; J12.82 - Pneumonia due to coronavirus disease 2019 Status: Acute Assessment and Plan: Patient tested positive for COVID-19 on 10/17 and started on dexamethasone on 10/17, remdesivir on 10/17, and ceftriaxone and azithromycin on 10/17.. Convalescent plasma given 10/22. - Remdesivir for 10 days Unless he should recover and tolerate room air with rest, ambulation and while sleeping. - Dexamethasone 6 mg IV for 10 days - Continuous pulse oximetry - Prone positioning as tolerated. - Avoid any fluid overload. - emperic azihtromycin and ceftraixone for CAP. 10/22 is day 6 and I will DC today. - levalbuterol and ipratroprium nebs for now 10/22 Patient with pneumomediastinum which is a known complication of COVID pneumonia. Currently patient is hemodynamically stable. We will avoid BiPAP at this time. We have decreased his high flow from 50 L to 40 L at this time. Goal saturations are 90-94% and will utilize high-flow oxygen, or mechanical ventilation. Discussed with Teodora Bourne and Dr. Ford. Will follow with you. (2) Acute respiratory failure with hypoxia: Code(s): J96.01 - Acute respiratory failure with hypoxia Status: Acute Assessment and Plan: Etiology of hypoxic respiratory failure is likely COVID pneumonia. 10/17 ABG on admit without hypercarbia at 7.42/37/59 on 6L NC. 10/19 08:00 Airvo 50L and FIO2 75% sats 95% 10/20 08:00 Airvo 60L and FIO2 60% sats 90% 10/21 08:00 Airvo 40L and FIO2 60% sats 90% 10/21 20:00 Airvo 40L and FIO2 60% sats 96% 10/22 08:00 Airvo 50L and FIO2 77% sats 92% 10/22 12:00 Airvo 50L and FIO2 75% sats 92% 10/22 16:00 Airvo 40L and FIO2 60% sats 92% History of Present Illness History of Present Illness Consult date: 10/22/20 Requesting physician: Teodora Bourne PA-C Reason for consult: hypoxemia and other (COVID pneumonia) Chief complaint: Acute respiratory failure with hypoxia/COVID 19 Narrative: This is a new pulmonary consult for COVID pneumonia with hypoxemic respiratory failure. 70-year-old male with a history of hypertension and polio who presented to the emergency department on 10/17 with shortness of breath. His had tested positive for COVID on a home kit done 3 days previously. Patient was hypoxemic in the emergency department and placed on BiPAP. Patient had a chest x-ray that diffuse showed diffuse interstitial infiltrates and he was started on dexamethasone on 724, REMdesivir on 10/17, and ceftriaxone and azithromycin on 10/17. Patient had a positive D-dimer and on 10/[address] angiogram of the chest that demonstrated no pulmonary embolism and diffuse multilobar interstitial and alveolar infiltrates. Patient was also noticed to have a large pneumomediastinum. I was consulted on 10/20. I spoke to the hospitalist and recommended a thoracic surgery consultation and she was able to reach a thoracic surgeon at [facility] who recommended no transfer to their facility at this time. 10/20 overall the patient tells me that he has improved since admission. he is afebrile, his white blood cell count is 11.5 and he is currently on high-flow nasal cannula at 40 L and 60% FiO2 with saturations 94%. he currently denies fever, chills, rigors, hemoptysis or chest pain. He does notice a fullness in his neck. Convalescent plasma has been ordered. DATA: EXAMINATION: CTA chest PE protocol EXAM DATE: 10/22/2020 12:42 INDICATION: R/o PE, cavitary lesion with + fungal. Shortness of breath. COVID pneumonia. TECHNIQUE: Spiral CTA of the chest (pulmonary arteries) was performed with 100 cc Omnipaque 350 intravenous contrast injection. Images were acquired during the pulmonary arterial phase. Coronal maximum intensity projection 3D-reconstructions were created by the technologist on dedicated workstatio
[2020-10-22] MEDS: DOCUSATE SODIUM 100 MG CAPSULE PO (21:53)
[2020-10-22] MEDS: SENNOSIDES 8.6 MG TABLET PO (21:54)
[2020-10-23] VITALS (21 sets, daily range): BP systolic 105–132; BP diastolic 71–80; PULSE 94–120; RESP 18–24; TEMP 36.6–37.1; O2SAT 90–98
[2020-10-23] MEDS: IPRATROPIUM BR 0.02% INH SOLN 0.5 MG/2.5 ML VIAL INHALATION ×4 (02:59→23:16)
[2020-10-23 06:11] LABS: Hematocrit 26.8 % (42.0-52.0); Hemoglobin 8.9 g/dL (14.0-18.0); Mean Corpuscular HGB Conc 33.2 g/dl (32-36); Mean Corpuscular Hemoglobin 27.7 pg (26-34); Mean Corpuscular Volume 83.5 fl (80-100); Mean Platelet Volume 11.1 fl (7.4-10.4); Platelet Count Result 298 k/mm3 (150-375); Red Blood Count 3.21 M/mm3 (4.6-6.20); Red Cell Distribution Width 14.2 % (11.5-14.5); White Blood Count 22.2 K/mm3 (4.5-10.0)
[2020-10-23 06:23] LABS: Alanine Aminotransferase 55 U/L (4-50); Albumin Level 2.8 g/dL (3.5-5.1); Alkaline Phosphatase 57 U/L (38-126); Anion Gap 7 mmol/L (8-16); Aspartate Amino Transferase 50 U/L (17-59); Bilirubin,Total 0.5 mg/dL (0.2-1.3); Blood Urea Nitrogen 24 mg/dL (9-20); CRP 5.7 mg/dL (<1.0); Calcium 8.8 mg/dL (8.4-10.2); Carbon Dioxide 23 mmol/L (22-30); Chloride 107 mmol/L (98-107); Estimated CRCL calculation 76 ml/min; Estimated Glomerular Filt Rate > 60; Glucose 113 mg/dL (65-110); Potassium 4.5 mmol/L (3.4-5.0); Sodium 137 mmol/L (137-145)
--- NOTE | 2020-10-23 08:17 | PM.PNPUL ---
Progress Note: A&P Assessment and Plan (1) Pneumonia due to COVID-19 virus: Code(s): U07.1 - COVID-19; J12.82 - Pneumonia due to coronavirus disease 2019 Status: Acute Assessment and Plan: Patient tested positive for COVID-19 on 10/17 and started on dexamethasone on 10/17, remdesivir on 10/17, and ceftriaxone and azithromycin on 10/17.. Convalescent plasma given 10/22. - Remdesivir for 10 days Unless he should recover and tolerate room air with rest, ambulation and while sleeping. - Dexamethasone 6 mg IV for 10 days - Continuous pulse oximetry - Prone positioning as tolerated. - Avoid any fluid overload. - emperic azihtromycin and ceftraixone for CAP. 10/22 is day 6 and I will DC today. - levalbuterol and ipratroprium nebs for now 10/22 Patient with pneumomediastinum which is a known complication of COVID pneumonia. Currently patient is hemodynamically stable. We will avoid BiPAP at this time. We have decreased his high flow from 50 L to 40 L at this time. Goal saturations are 90-94% and will utilize high-flow oxygen, or mechanical ventilation. Hospitalist spoke with thoracic surgery and no need for transfer at this time. 10/23 The patient tells me that he has no dyspnea on exertion at rest. He is afebrile. WBC 22.2. CXR today with small left apical pneumothorax and continue pneumomediastinum. Will repeat CXR at 13:00. Discussed with Dr. Horowitz. (2) Acute respiratory failure with hypoxia: Code(s): J96.01 - Acute respiratory failure with hypoxia Status: Acute Assessment and Plan: Etiology of hypoxic respiratory failure is likely COVID pneumonia. 10/17 ABG on admit without hypercarbia at 7.42/37/59 on 6L NC. 10/19 08:00 Airvo 50L and FIO2 75% sats 95% 10/20 08:00 Airvo 60L and FIO2 60% sats 90% 10/21 08:00 Airvo 40L and FIO2 60% sats 90% 10/21 20:00 Airvo 40L and FIO2 60% sats 96% 10/22 08:00 Airvo 50L and FIO2 77% sats 92% 10/22 12:00 Airvo 50L and FIO2 75% sats 92% 10/22 16:00 Airvo 40L and FIO2 60% sats 92% 10/23 08:00 Airvo 40L and FIO2 60% sats 90% I will resume in-patient follow up in 10/26/20, call with questions. Subjective Date/time seen: 10/23/20 08:17 Interval history: 10/22 Narrative: This is a new pulmonary consult for COVID pneumonia with hypoxemic respiratory failure. 70-year-old male with a history of hypertension and polio who presented to the emergency department on 10/17 with shortness of breath. His had tested positive for COVID on a home kit done 3 days previously. Patient was hypoxemic in the emergency department and placed on BiPAP. Patient had a chest x-ray that diffuse showed diffuse interstitial infiltrates and he was started on dexamethasone on 72, Remdesivir on 10/17, and ceftriaxone and azithromycin on 10/17. Patient had a positive D-dimer and on 10/[address] angiogram of the chest that demonstrated no pulmonary embolism and diffuse multilobar interstitial and alveolar infiltrates. Patient was also noticed to have a large pneumomediastinum. I was consulted on 10/20. I spoke to the hospitalist and recommended a thoracic surgery consultation and she was able to reach a thoracic surgeon at [facility] who recommended no transfer to their facility at this time. 10/22 overall the patient tells me that he has improved since admission. he is afebrile, his white blood cell count is 19.7 and he is currently on high-flow nasal cannula at 40 L and 60% FiO2 with saturations 94%. he currently denies fever, chills, rigors, hemoptysis or chest pain. He does notice a fullness in his neck. Convalescent plasma given. Hospitalist spoke with thoracic surgery and no need for transfer at this time. 10/23 The patient tells me that he has no dyspnea on exertion at rest. He is afebrile. WBC 22.2. CXR today with small left apical pneumothorax and continue pneumomediastinum. DATA: EXAMINATION: CTA chest PE protocol
[2020-10-23] MEDS: ENOXAPARIN 40 MG/0.4 ML SYRINGE SUB-Q ×2 (08:56→21:20)
[2020-10-23] MEDS: PANTOPRAZOLE SODIUM IV 40 MG VIAL IV PUSH ×2 (08:57→21:19)
[2020-10-23] MEDS: REMDESIVIR 100 MG/NS 250 ML 100 MG/250 ML BAG 250 MG IVPB (09:05)
[2020-10-23 10:10] LABS: INR 1.3; Prothrombin Time 15.6 Seconds (11.1-14.7)
--- NOTE | 2020-10-23 13:42 | PCPTNOTE ---
Attempted to see patient at 13:27, however patient unavailable. Patient about to have a PICC line placed. Will see patient tomorrow as appropriate per POC. Magnolia Silva, NURSING [employer]OR
[2020-10-23] MEDS: LIDOCAINE HCL 1% PF INJ 5 ML VIAL INFILTRATE (14:00)
--- NOTE | 2020-10-23 15:46 | PM.IMPN ---
Progress Note: A&P Assessment and Plan (1) Bilateral pneumonia: Code(s): J18.9 - Pneumonia, unspecified organism Status: Acute Assessment and Plan: POSTIVE COVID PCR 10/17/20 - Continue Airvo and wean as tolerated - Continue ceftriaxone, azithromycin, lovenox, dexamethosone and will extend remdesivir by another 5 days received convalescent plasma 10/22 - consider toxcilizum if CRP is over 7.5 - Wean o2 as tolerated will try to lower the flow because of underlying pneumomediastinum and pneumothorax Avoid BiPAP (2) COVID: Code(s): U07.1 - COVID-19 Status: Acute Assessment and Plan: See above (3) Acute respiratory failure with hypoxia: Code(s): J96.01 - Acute respiratory failure with hypoxia Status: Acute Assessment and Plan: 2/2 to above -wean o2 as tolerated (4) Elevated lactic acid level: Code(s): R79.89 - Other specified abnormal findings of blood chemistry Status: Acute Assessment and Plan: Resolved (5) Hypertension: Code(s): I10 - Essential (primary) hypertension Status: Acute Assessment and Plan: Last bp 121/58 - patient used to be on amlodipine but stop doing this as he is doing holistic medicine and taking apple cider vinegar to treat his hypertension (6) Polio: Code(s): A80.9 - Acute poliomyelitis, unspecified Status: Acute Assessment and Plan: hx of polio with right leg weakness (7) Elevated LFTs: Code(s): R79.89 - Other specified abnormal findings of blood chemistry Status: Acute Assessment and Plan: Likely due to COVID -monitor -ruq us with stones but no signs of acute Cholecystitis or choledocholithiasis on imaging or exam. Patient is eating and drinking - hepatitis panel negative - trending down (8) Sepsis: Code(s): A41.9 - Sepsis, unspecified organism Status: Acute Assessment and Plan: Due to above improving (9) Pneumonia due to COVID-19 virus: Code(s): U07.1 - COVID-19; J12.82 - Pneumonia due to coronavirus disease 2019 Status: Acute Assessment and Plan: As above (10) Pneumomediastinum: Code(s): J98.2 - Interstitial emphysema Status: Acute Assessment and Plan: noted in the CTA 10/22 Likely related to barotrauma Repeat chest x-ray today with stable finding (11) Pneumothorax: Code(s): J93.9 - Pneumothorax, unspecified Status: Acute Assessment and Plan: noted that x-ray 10/23 repeat this afternoon with stable size. Will continue to monitor recheck x-ray in the morning Subjective Date/time seen: 10/23/20 15:46 Interval history: Pt is a 65 y/o male here for COVID PNA. feels okay. This actually better than yesterday. No fever chills denies any chest pain. Review of Systems Review of Systems: All systems reviewed & are unremarkable except as noted in HPI and below Exam Narrative: General: comfortable. In no acute distress. Skin: No jaundice or cyanosis. Good skin turgor. Neck: Full range of motion. Supple. Subcutaneous emphysema felt Respiratory: Decreased air sounds throughout bilateral lungs. No bony chest wall tenderness. Cardiovascular: The heart has a regular rhythm with tachycardic rate without murmur. Lower extremities: No lower extremity edema. Distal pulses are easily palpated. No calf tenderness to palpation. Gastrointestinal: The abdomen is soft, nontender and nondistended with active bowel sounds. Psychiatric: Lucid and oriented. Memory intact. Neurologic: No focal deficits. Speech is clear. No facial drooping. Objective Data Vital Signs Vital Signs: Vital Signs - 24 hr 10/22/20 16:00 10/22/20 16:02 10/22/20 17:45 Temperature 98.4 F 98.2 F Pulse Rate 94 102 H Respiratory Rate 20 18 Blood Pressure 105/67 114/84 Pulse Oximetry 92 92 94 10/22/20 17:58 10/22/20 18:00 07
[2020-10-23] MEDS: DOCUSATE SODIUM 100 MG CAPSULE PO (21:19)
[2020-10-23] MEDS: SENNOSIDES 8.6 MG TABLET PO (21:20)
[2020-10-24] VITALS (22 sets, daily range): BP systolic 125–147; BP diastolic 79–90; PULSE 84–120; RESP 18–30; TEMP 36.4–37.1; O2SAT 90–98
[2020-10-24] MEDS: IPRATROPIUM BR 0.02% INH SOLN 0.5 MG/2.5 ML VIAL INHALATION ×4 (03:04→20:36)
[2020-10-24 05:46] LABS: Basophils Absolute Auto 0.1 K/mm3 (0.0-0.1); Basophils Percent Auto 0.3 % (0.2-1.2); Eosinophils Absolute Auto 0.1 K/mm3 (0-0.3); Eosinophils Percent Auto 0.3 % (0-4.4); Hematocrit 24.6 % (42.0-52.0); Hemoglobin 8.1 g/dL (14.0-18.0); Immature Granulocyte Absolute 2.25 K/mm3 (0.00-0.031); Immature Granulocyte Percent A 9.9 % (0-0.5); Lymphocytes Absolute Auto 1.93 K/mm3 (0.9-3.2); Lymphocytes Percent Auto 8.5 % (18.3-44.2); Mean Corpuscular HGB Conc 32.9 g/dl (32-36); Mean Corpuscular Hemoglobin 27.5 pg (26-34); Mean Corpuscular Volume 83.4 fl (80-100); Monocytes Absolute Auto 1.1 K/mm3 (0.1-0.6); Monocytes Percent Auto 4.9 % (2.6-8.5); Neutrophils Absolute Auto 17.4 K/mm3 (1.3-6.7); Neutrophils Percent Auto 76.1 % (45.5-73.1); Nucleated Red Blood Cells Absolute Auto 0.1 K/mm3 (0.0-0.012); Nucleated Red Blood Cells Perc 0.3 % (0.0-0.2); Platelet Count Result 315 k/mm3 (150-375); Red Blood Count 2.95 M/mm3 (4.6-6.20); Red Cell Distribution Width 14.3 % (11.5-14.5); White Blood Count 22.8 K/mm3 (4.5-10.0)
[2020-10-24 05:55] LABS: Alanine Aminotransferase 47 U/L (4-50); Anion Gap 4 mmol/L (8-16); Blood Urea Nitrogen 18 mg/dL (9-20); Calcium 8.4 mg/dL (8.4-10.2); Carbon Dioxide 22 mmol/L (22-30); Chloride 109 mmol/L (98-107); Estimated CRCL calculation 86 ml/min; Estimated Glomerular Filt Rate > 60; Glucose 98 mg/dL (65-110); Potassium 4.6 mmol/L (3.4-5.0); Sodium 135 mmol/L (137-145)
[2020-10-24 06:16] LABS: INR 1.2; Prothrombin Time 15.4 Seconds (11.1-14.7)
[2020-10-24 07:42] LABS: Anisocytosis 1+ (NORMAL); Ovalocytes 1+ (NORMAL); Platelet Estimate Adequate (Adequate); Target Cells 1+ (NORMAL)
[2020-10-24] MEDS: PANTOPRAZOLE SODIUM IV 40 MG VIAL IV PUSH ×2 (10:16→21:25)
[2020-10-24] MEDS: DOCUSATE SODIUM 100 MG CAPSULE PO ×2 (10:17→21:26)
[2020-10-24] MEDS: ENOXAPARIN 40 MG/0.4 ML SYRINGE SUB-Q ×2 (10:17→21:25)
--- NOTE | 2020-10-24 11:26 | PM.IMPN ---
Progress Note: A&P Assessment and Plan (1) Bilateral pneumonia: Code(s): J18.9 - Pneumonia, unspecified organism Status: Acute Assessment and Plan: POSTIVE COVID PCR 10/17/20 - Continue Airvo and wean as tolerated - Continue ceftriaxone, azithromycin, lovenox, dexamethosone and will extend remdesivir by another 5 days received convalescent plasma 10/22 - consider toxcilizum if CRP is over 7.5 - Wean o2 as tolerated will try to lower the flow because of underlying pneumomediastinum and pneumothorax Avoid BiPAP (2) COVID: Code(s): U07.1 - COVID-19 Status: Acute Assessment and Plan: See above (3) Acute respiratory failure with hypoxia: Code(s): J96.01 - Acute respiratory failure with hypoxia Status: Acute Assessment and Plan: 2/2 to above -wean o2 as tolerated (4) Elevated lactic acid level: Code(s): R79.89 - Other specified abnormal findings of blood chemistry Status: Acute Assessment and Plan: Resolved (5) Hypertension: Code(s): I10 - Essential (primary) hypertension Status: Acute Assessment and Plan: Last bp 121/58 - patient used to be on amlodipine but stop doing this as he is doing holistic medicine and taking apple cider vinegar to treat his hypertension (6) Polio: Code(s): A80.9 - Acute poliomyelitis, unspecified Status: Acute Assessment and Plan: hx of polio with right leg weakness (7) Elevated LFTs: Code(s): R79.89 - Other specified abnormal findings of blood chemistry Status: Acute Assessment and Plan: Likely due to COVID -monitor -ruq us with stones but no signs of acute Cholecystitis or choledocholithiasis on imaging or exam. Patient is eating and drinking - hepatitis panel negative - trending down (8) Sepsis: Code(s): A41.9 - Sepsis, unspecified organism Status: Acute Assessment and Plan: Due to above improving (9) Pneumonia due to COVID-19 virus: Code(s): U07.1 - COVID-19; J12.82 - Pneumonia due to coronavirus disease 2019 Status: Acute Assessment and Plan: As above (10) Pneumomediastinum: Code(s): J98.2 - Interstitial emphysema Status: Acute Assessment and Plan: noted in the CTA 10/22 Likely related to barotrauma Repeat chest x-ray today with stable finding Continue to monitor x-ray (11) Pneumothorax: Code(s): J93.9 - Pneumothorax, unspecified Status: Acute Assessment and Plan: noted that x-ray 10/23 repeat this afternoon with stable size. repeat x-ray chest this morning on 10/24 with stable apical pneumothorax Subjective Date/time seen: 10/24/20 11:26 Interval history: Pt is a 65 y/o male here for COVID PNA. feeling okay. Shortness of breath his baseline. Remains on the same amount of oxygen. No fever chills no chest pain Review of Systems Review of Systems: All systems reviewed & are unremarkable except as noted in HPI and below Exam Narrative: General: comfortable. In no acute distress. Skin: No jaundice or cyanosis. Good skin turgor. Neck: Full range of motion. Supple. Subcutaneous emphysema felt Respiratory: Decreased air sounds throughout bilateral lungs. No bony chest wall tenderness. Cardiovascular: The heart has a regular rhythm with tachycardic rate without murmur. Lower extremities: No lower extremity edema. Distal pulses are easily palpated. No calf tenderness to palpation. Gastrointestinal: The abdomen is soft, nontender and nondistended with active bowel sounds. Psychiatric: Lucid and oriented. Memory intact. Neurologic: No focal deficits. Speech is clear. No facial drooping. Objective Data Vital Signs Vital Signs: Vital Signs - 24 hr 10/23/20 11:49 10/23/20 12:00 10/23/20 14:00 Temperature 98.7 F Pulse Rate 120 H 116 H 116 H Respiratory Rate 22 H Blood Press
[2020-10-24] MEDS: REMDESIVIR 100 MG/NS 250 ML 100 MG/250 ML BAG 250 MG IVPB (14:07)
[2020-10-24] MEDS: SENNOSIDES 8.6 MG TABLET PO (21:26)
[2020-10-25] VITALS (23 sets, daily range): BP systolic 125–148; BP diastolic 76–102; PULSE 84–124; RESP 18–26; TEMP 36.6–37.1; O2SAT 90–97
[2020-10-25] MEDS: IPRATROPIUM BR 0.02% INH SOLN 0.5 MG/2.5 ML VIAL INHALATION ×4 (01:54→21:22)
[2020-10-25 05:14] LABS: Basophils Absolute Auto 0.1 K/mm3 (0.0-0.1); Basophils Percent Auto 0.2 % (0.2-1.2); Eosinophils Absolute Auto 0.1 K/mm3 (0-0.3); Eosinophils Percent Auto 0.3 % (0-4.4); Hematocrit 24.9 % (42.0-52.0); Hemoglobin 8.4 g/dL (14.0-18.0); Immature Granulocyte Percent A 10.1 % (0-0.5); Lymphocytes Absolute Auto 1.99 K/mm3 (0.9-3.2); Lymphocytes Percent Auto 9.1 % (18.3-44.2); Mean Corpuscular HGB Conc 33.7 g/dl (32-36); Mean Platelet Volume 10.6 fl (7.4-10.4); Monocytes Absolute Auto 1.1 K/mm3 (0.1-0.6); Monocytes Percent Auto 5.1 % (2.6-8.5); Neutrophils Absolute Auto 16.4 K/mm3 (1.3-6.7); Neutrophils Percent Auto 75.2 % (45.5-73.1); Nucleated Red Blood Cells Absolute Auto 0.1 K/mm3 (0.0-0.012); Nucleated Red Blood Cells Perc 0.5 % (0.0-0.2); Platelet Count Result 308 k/mm3 (150-375); Red Cell Distribution Width 14.6 % (11.5-14.5); White Blood Count 21.8 K/mm3 (4.5-10.0)
[2020-10-25 05:26] LABS: INR 1.1; Prothrombin Time 14.5 Seconds (11.1-14.7)
[2020-10-25 05:42] LABS: Alanine Aminotransferase 42 U/L (4-50); Anion Gap 8 mmol/L (8-16); Blood Urea Nitrogen 17 mg/dL (9-20); CRP 7.3 mg/dL (<1.0); Calcium 8.4 mg/dL (8.4-10.2); Carbon Dioxide 20 mmol/L (22-30); Chloride 108 mmol/L (98-107); Estimated CRCL calculation 76 ml/min; Estimated Glomerular Filt Rate > 60; Glucose 105 mg/dL (65-110); Potassium 4.7 mmol/L (3.4-5.0); Sodium 136 mmol/L (137-145)
[2020-10-25 05:50] LABS: Lactate Dehydrogenase 949 U/L (313-618)
[2020-10-25] MEDS: ENOXAPARIN 40 MG/0.4 ML SYRINGE SUB-Q ×2 (10:59→20:59)
[2020-10-25] MEDS: DOCUSATE SODIUM 100 MG CAPSULE PO ×2 (10:59→20:59)
[2020-10-25] MEDS: REMDESIVIR 100 MG/NS 250 ML 100 MG/250 ML BAG 250 MG IVPB (11:00)
[2020-10-25] MEDS: PANTOPRAZOLE SODIUM IV 40 MG VIAL IV PUSH ×2 (11:00→21:00)
--- NOTE | 2020-10-25 12:58 | PM.IMPN ---
Progress Note: A&P Assessment and Plan (1) Bilateral pneumonia: Code(s): J18.9 - Pneumonia, unspecified organism Status: Acute Assessment and Plan: POSTIVE COVID PCR 10/17/20 - Continue Airvo and wean as tolerated - Continue ceftriaxone, azithromycin, lovenox, dexamethosone and will extend remdesivir by another 5 days received convalescent plasma 10/22 - consider toxcilizum if CRP is over 7.5 - Wean o2 as tolerated will try to lower the flow because of underlying pneumomediastinum and pneumothorax Avoid BiPAP (2) COVID: Code(s): U07.1 - COVID-19 Status: Acute Assessment and Plan: See above (3) Acute respiratory failure with hypoxia: Code(s): J96.01 - Acute respiratory failure with hypoxia Status: Acute Assessment and Plan: 2/2 to above -wean o2 as tolerated (4) Elevated lactic acid level: Code(s): R79.89 - Other specified abnormal findings of blood chemistry Status: Acute Assessment and Plan: Resolved (5) Hypertension: Code(s): I10 - Essential (primary) hypertension Status: Acute Assessment and Plan: Last bp 121/58 - patient used to be on amlodipine but stop doing this as he is doing holistic medicine and taking apple cider vinegar to treat his hypertension (6) Polio: Code(s): A80.9 - Acute poliomyelitis, unspecified Status: Acute Assessment and Plan: hx of polio with right leg weakness (7) Elevated LFTs: Code(s): R79.89 - Other specified abnormal findings of blood chemistry Status: Acute Assessment and Plan: Likely due to COVID -monitor -ruq us with stones but no signs of acute Cholecystitis or choledocholithiasis on imaging or exam. Patient is eating and drinking - hepatitis panel negative - trending down (8) Sepsis: Code(s): A41.9 - Sepsis, unspecified organism Status: Acute Assessment and Plan: Due to above improving (9) Pneumonia due to COVID-19 virus: Code(s): U07.1 - COVID-19; J12.82 - Pneumonia due to coronavirus disease 2019 Status: Acute Assessment and Plan: As above (10) Pneumomediastinum: Code(s): J98.2 - Interstitial emphysema Status: Acute Assessment and Plan: noted in the CTA 10/22 Likely related to barotrauma Repeat chest x-ray today with stable finding Continue to monitor x-ray (11) Pneumothorax: Code(s): J93.9 - Pneumothorax, unspecified Status: Acute Assessment and Plan: noted that x-ray 10/23 repeat this afternoon with stable size. repeat x-ray chest this morning on 10/24 with stable apical pneumothorax Additional Plan Patient presents today with worsening shortness of breath though he has had symptoms including subjective fever, cough, and body aches for at least a week if not a week and half. He tested positive for COVID-19 on a home kit 3 days ago and chest x-ray today shows bilateral pneumonia. He has been started on azithromycin and ceftriaxone pending confirmation of a COVID positive result. Given the severity of his illness and markedly increased inflammatory markers, he was started on dexamethasone and remdesivir. I think he would be a good candidate for tocilizumab though I think we need to have confirmation of his COVID positive status 1st. He meets criteria for sepsis with tachycardia, tachypnea, and elevated lactic acid level. Repeat lactic acid level has normalized. Blood and sputum cultures have been ordered. His vital signs were reviewed and he is much more stable at this time. LFTs are elevated though likely related to COVID will obtain right upper quadrant ultrasound check hepatitis panel for completeness sake. 10/25/2020 Patient is clinically getting better. Will continue with oxygen support. Titrate as needed. Subjective Date/time seen: 10/25/20 12:58 Patient was seen during the morning has today
[2020-10-25] MEDS: LACTULOSE 20 GM/30 ML UDC PO (16:19)
[2020-10-25] MEDS: SENNOSIDES 8.6 MG TABLET PO (20:59)
[2020-10-26] VITALS (25 sets, daily range): BP systolic 116–142; BP diastolic 51–86; PULSE 85–115; RESP 20–24; TEMP 35.9–36.9; O2SAT 92–100
[2020-10-26] MEDS: IPRATROPIUM BR 0.02% INH SOLN 0.5 MG/2.5 ML VIAL INHALATION ×4 (03:40→20:21)
[2020-10-26 06:02] LABS: Hemoglobin 9.5 g/dL (14.0-18.0); Mean Corpuscular HGB Conc 32.8 g/dl (32-36); Mean Corpuscular Hemoglobin 27.5 pg (26-34); Mean Corpuscular Volume 84.1 fl (80-100); Mean Platelet Volume 10.5 fl (7.4-10.4); Platelet Count Result 353 k/mm3 (150-375); Red Blood Count 3.45 M/mm3 (4.6-6.20); Red Cell Distribution Width 15.9 % (11.5-14.5); White Blood Count 20.7 K/mm3 (4.5-10.0)
[2020-10-26 06:13] LABS: Alanine Aminotransferase 41 U/L (4-50); Estimated CRCL calculation 76 ml/min; Estimated Glomerular Filt Rate > 60
[2020-10-26 06:14] LABS: INR 1.1; Prothrombin Time 13.7 Seconds (11.1-14.7)
--- NOTE | 2020-10-26 06:35 | PM.IMPN ---
Progress Note: A&P Assessment and Plan (1) Bilateral pneumonia: Code(s): J18.9 - Pneumonia, unspecified organism Status: Acute Assessment and Plan: POSTIVE COVID PCR 10/17/20 - Continue Airvo and wean as tolerated - Continue ceftriaxone, azithromycin, lovenox, dexamethosone and will extend remdesivir by another 5 days received convalescent plasma 10/22 - consider toxcilizum if CRP is over 7.5 - Wean o2 as tolerated will try to lower the flow because of underlying pneumomediastinum and pneumothorax Avoid BiPAP 10/26/2020 Clinically much better, will continue with oxygen support. (2) COVID: Code(s): U07.1 - COVID-19 Status: Acute Assessment and Plan: See above (3) Acute respiratory failure with hypoxia: Code(s): J96.01 - Acute respiratory failure with hypoxia Status: Acute Assessment and Plan: 2/2 to above -wean o2 as tolerated 10/26/2020 Will continue with oxygen support, wean off as tolerated (4) Elevated lactic acid level: Code(s): R79.89 - Other specified abnormal findings of blood chemistry Status: Acute Assessment and Plan: Resolved (5) Hypertension: Code(s): I10 - Essential (primary) hypertension Status: Acute Assessment and Plan: Last bp 121/58 - patient used to be on amlodipine but stop doing this as he is doing holistic medicine and taking apple cider vinegar to treat his hypertension (6) Polio: Code(s): A80.9 - Acute poliomyelitis, unspecified Status: Acute Assessment and Plan: hx of polio with right leg weakness (7) Elevated LFTs: Code(s): R79.89 - Other specified abnormal findings of blood chemistry Status: Acute Assessment and Plan: Likely due to COVID -monitor -ruq us with stones but no signs of acute Cholecystitis or choledocholithiasis on imaging or exam. Patient is eating and drinking - hepatitis panel negative - trending down (8) Sepsis: Code(s): A41.9 - Sepsis, unspecified organism Status: Acute Assessment and Plan: Due to above improving (9) Pneumonia due to COVID-19 virus: Code(s): U07.1 - COVID-19; J12.82 - Pneumonia due to coronavirus disease 2019 Status: Acute Assessment and Plan: As above (10) Pneumomediastinum: Code(s): J98.2 - Interstitial emphysema Status: Acute Assessment and Plan: noted in the CTA 10/22 Likely related to barotrauma Repeat chest x-ray today with stable finding Continue to monitor x-ray (11) Pneumothorax: Code(s): J93.9 - Pneumothorax, unspecified Status: Acute Assessment and Plan: noted that x-ray 10/23 repeat this afternoon with stable size. repeat x-ray chest this morning on 10/24 with stable apical pneumothorax Additional Plan Patient presents today with worsening shortness of breath though he has had symptoms including subjective fever, cough, and body aches for at least a week if not a week and half. He tested positive for COVID-19 on a home kit 3 days ago and chest x-ray today shows bilateral pneumonia. He has been started on azithromycin and ceftriaxone pending confirmation of a COVID positive result. Given the severity of his illness and markedly increased inflammatory markers, he was started on dexamethasone and remdesivir. I think he would be a good candidate for tocilizumab though I think we need to have confirmation of his COVID positive status 1st. He meets criteria for sepsis with tachycardia, tachypnea, and elevated lactic acid level. Repeat lactic acid level has normalized. Blood and sputum cultures have been ordered. His vital signs were reviewed and he is much more stable at this time. LFTs are elevated though likely related to COVID will obtain right upper quadrant ultrasound check hepatitis panel for completeness sake. 10/25/2020 Patient is clinically getting better. Will con
[2020-10-26] MEDS: DOCUSATE SODIUM 100 MG CAPSULE PO ×2 (09:27→20:13)
[2020-10-26] MEDS: ENOXAPARIN 40 MG/0.4 ML SYRINGE SUB-Q ×2 (09:27→20:13)
[2020-10-26] MEDS: PANTOPRAZOLE SODIUM IV 40 MG VIAL IV PUSH ×2 (09:30→20:13)
--- NOTE | 2020-10-26 09:46 | PM.PNPUL ---
Progress Note: A&P Assessment and Plan (1) Pneumonia due to COVID-19 virus: Code(s): U07.1 - COVID-19; J12.82 - Pneumonia due to coronavirus disease 2018 Status: Acute Assessment and Plan: Patient tested positive for COVID-19 on 10/17 and started on dexamethasone on 10/17, remdesivir on 10/17, and ceftriaxone and azithromycin on 10/17.. Convalescent plasma given 10/22. - Remdesivir for 10 days Unless he should recover and tolerate room air with rest, ambulation and while sleeping. - Dexamethasone 6 mg IV for 10 days - Continuous pulse oximetry - Prone positioning as tolerated. - Avoid any fluid overload. - emperic azihtromycin and ceftraixone for CAP. 10/22 is day 6 and I will DC today. - levalbuterol and ipratroprium nebs for now 10/22 Patient with pneumomediastinum which is a known complication of COVID pneumonia. Currently patient is hemodynamically stable. We will avoid BiPAP at this time. We have decreased his high flow from 50 L to 40 L at this time. Goal saturations are 90-94% and will utilize high-flow oxygen, or mechanical ventilation. Hospitalist spoke with thoracic surgery and no need for transfer at this time. 10/23 The patient tells me that he has no dyspnea on exertion at rest. He is afebrile. WBC 22.2. CXR today with small left apical pneumothorax and continue pneumomediastinum. Will repeat CXR at 13:00. 10/26 Patient Tells me that he continues to slowly improve. Currently he is on high-flow 40 L with 50% FiO2 and sats 95%. Chest x-ray today showed decrease in the left apical pneumothorax, nearly in discernible. No change in pneumomediastinum and diffuse interstitial infiltrates. Slowly improving but remains hypoxic, wean to high flow NC at 15 L if possible. Prior to discharge would get CXR to serve as baseline. Will need LTAC placement if remains hypoxic and otherswise ready for discharge. Will sign off, call with any questions. (2) Acute respiratory failure with hypoxia: Code(s): J96.01 - Acute respiratory failure with hypoxia Status: Acute Assessment and Plan: Etiology of hypoxic respiratory failure is likely COVID pneumonia. 10/17 ABG on admit without hypercarbia at 7.42/37/59 on 6L NC. 10/19 08:00 Airvo 50L and FIO2 75% sats 95% 10/20 08:00 Airvo 60L and FIO2 60% sats 90% 10/21 08:00 Airvo 40L and FIO2 60% sats 90% 10/21 20:00 Airvo 40L and FIO2 60% sats 96% 10/22 08:00 Airvo 50L and FIO2 77% sats 92% 10/22 12:00 Airvo 50L and FIO2 75% sats 92% 10/22 16:00 Airvo 40L and FIO2 60% sats 92% 10/23 08:00 Airvo 40L and FIO2 60% sats 90% 10/26 08:00 Airvo 40 L and FIO2 50% sats 95% I will resume in-patient follow up in 10/26/20, call with questions. Subjective Date/time seen: 10/26/20 09:46 Interval history: 10/22 Narrative: This is a new pulmonary consult for COVID pneumonia with hypoxemic respiratory failure. 70-year-old male with a history of hypertension and polio who presented to the emergency department on 10/17 with shortness of breath. His had tested positive for COVID on a home kit done 3 days previously. Patient was hypoxemic in the emergency department and placed on BiPAP. Patient had a chest x-ray that diffuse showed diffuse interstitial infiltrates and he was started on dexamethasone on 724, Remdesivir on 10/17, and ceftriaxone and azithromycin on 10/17. Patient had a positive D-dimer and on 10/[address] angiogram of the chest that demonstrated no pulmonary embolism and diffuse multilobar interstitial and alveolar infiltrates. Patient was also noticed to have a large pneumomediastinum. I was consulted on 10/20. I spoke to the hospitalist and recommended a thoracic surgery consultation and she was able to reach a thoracic surgeon at [facility] who recommended no transfer to their facility at this time. 10/22 overall the patient tells me that he has improved since admission. he is afebrile, his white blood cell count is 19.7 and he is c
[2020-10-26] MEDS: REMDESIVIR 100 MG/NS 250 ML 100 MG/250 ML BAG 250 MG IVPB (09:47)
--- NOTE | 2020-10-26 10:56 | PCDIET ---
Nutrition Follow-Up Complete: Nutrition Diagnosis: Inadequate oral intake related to decreased appetite and altered taste as evidenced by minimal intake x 1 week with presumed weight loss, per patient. Nutrition Goal: Patient to consume 50% of meals/supplements or greater. Goal met. Patient consumed an average of 68% of recorded meals since last review and reports improving appetite. Reports feeling much better after BM yesterday. Does not care for Ensure Compact, but would be agreeable to try Frozen Nutritional Treat (300kcal, 9g protein) - recommend changing supplement from Ensure Compact BID to Frozen Nutritional Treat BID. Adequate intake encouraged. Regular diet remains appropriate at this time. Last recorded weight is 75.5 kg which is increased from last review. +I/O. Bowel Motility: Patient reports having first bowel movement since admission on 10/25/20. Patient on multiple medications to promote BM. Noted Lactulose also given on 10/25/20. Labs Reviewed: WBC (20.7), RBC (3.45), Hgb (9.5), Hct (29.0) Meds Noted: Decadron, Colace, Atrovent, Xopenex, Protonix, Miralax, Senna Additional Notes: No skin breakdown documented. Will continue to monitor with same goal. Nutrition Monitoring and Evaluation: Follow up every 5 days.
[2020-10-26] MEDS: SENNOSIDES 8.6 MG TABLET PO (20:13)
[2020-10-27] VITALS (24 sets, daily range): BP systolic 116–144; BP diastolic 58–90; PULSE 82–127; RESP 14–24; TEMP 36.4–36.9; O2SAT 89–100
[2020-10-27] MEDS: IPRATROPIUM BR 0.02% INH SOLN 0.5 MG/2.5 ML VIAL INHALATION ×4 (03:18→22:00)
[2020-10-27 06:05] LABS: Hematocrit 23.7 % (42.0-52.0); Hemoglobin 7.9 g/dL (14.0-18.0); Mean Corpuscular HGB Conc 33.3 g/dl (32-36); Mean Corpuscular Hemoglobin 28.1 pg (26-34); Mean Corpuscular Volume 84.3 fl (80-100); Mean Platelet Volume 10.3 fl (7.4-10.4); Platelet Count Result 291 k/mm3 (150-375); Red Blood Count 2.81 M/mm3 (4.6-6.20); Red Cell Distribution Width 16.7 % (11.5-14.5); White Blood Count 17.8 K/mm3 (4.5-10.0)
[2020-10-27] MEDS: DOCUSATE SODIUM 100 MG CAPSULE PO ×2 (08:45→20:53)
[2020-10-27] MEDS: ENOXAPARIN 40 MG/0.4 ML SYRINGE SUB-Q ×2 (08:47→20:53)
[2020-10-27] MEDS: PANTOPRAZOLE SODIUM IV 40 MG VIAL IV PUSH ×2 (08:47→20:53)
--- NOTE | 2020-10-27 18:14 | PM.IMPN ---
Progress Note: A&P Assessment and Plan (1) Bilateral pneumonia: Code(s): J18.9 - Pneumonia, unspecified organism Status: Acute Assessment and Plan: POSTIVE COVID PCR 10/17/20 - Continue Airvo and wean as tolerated - Continue ceftriaxone, azithromycin, lovenox, dexamethosone and will extend remdesivir by another 5 days received convalescent plasma 10/22 - consider toxcilizum if CRP is over 7.5 - Wean o2 as tolerated will try to lower the flow because of underlying pneumomediastinum and pneumothorax Avoid BiPAP 10/26/2020 Clinically much better, will continue with oxygen support. 10/27/20 18:14 patient is sitting in the chair states feeling much better patient was diagnosed with a COVID 19 on 10/17 and started on dexamethasone on 10/17 , remdesivir on 10/17, completed 10 days course on 10/26 and ceftriaxone and azithromycin on 10/17, after 6 days the abx were stopped, also received Convalescent plasma given on 10/22. patient remains clinically stable, afebrile and on 4 L of oxygen, will discuss tomorrow for discharge planning. (2) COVID: Code(s): U07.1 - COVID-19 Status: Acute Assessment and Plan: See above (3) Acute respiratory failure with hypoxia: Code(s): J96.01 - Acute respiratory failure with hypoxia Status: Acute Assessment and Plan: 2/2 to above -wean o2 as tolerated 10/26/2020 Will continue with oxygen support, wean off as tolerated (4) Elevated lactic acid level: Code(s): R79.89 - Other specified abnormal findings of blood chemistry Status: Acute Assessment and Plan: Resolved (5) Hypertension: Code(s): I10 - Essential (primary) hypertension Status: Acute Assessment and Plan: Last bp 121/58 - patient used to be on amlodipine but stop doing this as he is doing holistic medicine and taking apple cider vinegar to treat his hypertension (6) Polio: Code(s): A80.9 - Acute poliomyelitis, unspecified Status: Acute Assessment and Plan: hx of polio with right leg weakness (7) Elevated LFTs: Code(s): R79.89 - Other specified abnormal findings of blood chemistry Status: Acute Assessment and Plan: Likely due to COVID -monitor -ruq us with stones but no signs of acute Cholecystitis or choledocholithiasis on imaging or exam. Patient is eating and drinking - hepatitis panel negative - trending down (8) Sepsis: Code(s): A41.9 - Sepsis, unspecified organism Status: Acute Assessment and Plan: Due to above improving (9) Pneumonia due to COVID-19 virus: Code(s): U07.1 - COVID-19; J12.82 - Pneumonia due to coronavirus disease 2019 Status: Acute Assessment and Plan: As above (10) Pneumomediastinum: Code(s): J98.2 - Interstitial emphysema Status: Acute Assessment and Plan: noted in the CTA 10/22 Likely related to barotrauma Repeat chest x-ray today with stable finding Continue to monitor x-ray (11) Pneumothorax: Code(s): J93.9 - Pneumothorax, unspecified Status: Acute Assessment and Plan: noted that x-ray 10/23 repeat this afternoon with stable size. repeat x-ray chest this morning on 10/24 with stable apical pneumothorax Additional Plan Patient presents today with worsening shortness of breath though he has had symptoms including subjective fever, cough, and body aches for at least a week if not a week and half. He tested positive for COVID-19 on a home kit 3 days ago and chest x-ray today shows bilateral pneumonia. He has been started on azithromycin and ceftriaxone pending confirmation of a COVID positive result. Given the severity of his illness and markedly increased inflammatory markers, he was started on dexamethasone and remdesivir. I think he would be a good candidate for tocilizumab though I think we need to have confirmation of his COVID positive status
[2020-10-27] MEDS: SENNOSIDES 8.6 MG TABLET PO (20:53)
[2020-10-28] VITALS (28 sets, daily range): BP systolic 114–146; BP diastolic 64–94; PULSE 88–127; RESP 16–28; TEMP 35.7–36.3; O2SAT 86–100
[2020-10-28] MEDS: IPRATROPIUM BR 0.02% INH SOLN 0.5 MG/2.5 ML VIAL INHALATION ×4 (02:13→20:37)
[2020-10-28] MEDS: polyethylene glycoL 3350 17 GM POWD.PACK PO (09:28)
[2020-10-28] MEDS: PANTOPRAZOLE SODIUM IV 40 MG VIAL IV PUSH ×2 (09:28→20:13)
[2020-10-28] MEDS: ENOXAPARIN 40 MG/0.4 ML SYRINGE SUB-Q ×2 (09:28→20:13)
[2020-10-28] MEDS: DOCUSATE SODIUM 100 MG CAPSULE PO ×2 (09:28→20:13)
--- NOTE | 2020-10-28 15:08 | HOMEO2EVAL ---
Evaluation was performed at [facility] Home Oxygen Evaluation RC: Home Oxygen (O2) Evaluation Start: 10/28/20 11:40 Freq: ONCE Status: Active Protocol: RPE Activity Type Activity Date Activity User E-Sign Co-Sign Detail Recorded Client Recorded Date Recorded By Document 10/28/20 14:45 [email or web address] [email or web address] 10/28/20 15:07 KMV Document 10/28/20 14:46 KMV [email or web address] 10/28/20 15:07 KMV Document 10/28/20 14:48 KMV [email or web address] 10/28/20 15:07 KMV Document 10/28/20 14:50 KMV [email or web address] 10/28/20 15:07 KMV Document 10/28/20 14:55 KMV [email or web address] 10/28/20 15:07 KMV Document 10/28/20 15:00 KMV [email or web address] 10/28/20 15:08 KMV 10/28/20 10/28/20 10/28/20 14:45 14:46 14:48 Home O2 Evaluation Test Phase Resting Resting Resting Oxygen Delivery Room Air High Flow Nasal High Flow Nasal Cannula Cannula Oxygen Flow Rate (L/min) 2 3 Pulse Oximetry (90-100 %) 86 L 87 L 87 L Pulse Rate (60-100 beats/min) 100 Activity Tolerance Home Oxygen Evaluation Comments Treatment Charges O2 Evaluation - Inpatient 10/28/20 10/28/20 10/28/20 14:50 14:55 15:00 Home O2 Evaluation Test Phase Resting Exercise Resting Oxygen Delivery High Flow Nasal High Flow Nasal High Flow Nasal Cannula Cannula Cannula Oxygen Flow Rate (L/min) 4 4 4 Pulse Oximetry (90-100 %) 94 91 95 Pulse Rate (60-100 beats/min) Activity Tolerance Fair Home Oxygen Evaluation Comments UP WITH WALKER, PIVOT AND BACK INTO BED. Treatment Charges
--- NOTE | 2020-10-28 16:13 | PCPTNOTE ---
The patient treatment was not able to be completed today. Will plan to continue treatment per plan of care.
[2020-10-28] MEDS: SENNOSIDES 8.6 MG TABLET PO (20:13)
[2020-10-29] VITALS (24 sets, daily range): BP systolic 114–138; BP diastolic 75–92; PULSE 88–120; RESP 16–19; TEMP 36.7–37.1; O2SAT 95–100
[2020-10-29] MEDS: IPRATROPIUM BR 0.02% INH SOLN 0.5 MG/2.5 ML VIAL INHALATION ×4 (03:51→19:24)
[2020-10-29 05:14] LABS: Hemoglobin 8.4 g/dL (14.0-18.0); Mean Corpuscular HGB Conc 32.3 g/dl (32-36); Mean Corpuscular Hemoglobin 28.4 pg (26-34); Mean Corpuscular Volume 87.8 fl (80-100); Mean Platelet Volume 10.2 fl (7.4-10.4); Platelet Count Result 292 k/mm3 (150-375); Red Blood Count 2.96 M/mm3 (4.6-6.20); Red Cell Distribution Width 18.9 % (11.5-14.5); White Blood Count 13.5 K/mm3 (4.5-10.0)
[2020-10-29] MEDS: ENOXAPARIN 40 MG/0.4 ML SYRINGE SUB-Q ×2 (09:27→20:52)
[2020-10-29] MEDS: PANTOPRAZOLE SODIUM IV 40 MG VIAL IV PUSH ×2 (09:27→20:52)
[2020-10-29] MEDS: polyethylene glycoL 3350 17 GM POWD.PACK PO (09:34)
[2020-10-29] MEDS: DOCUSATE SODIUM 100 MG CAPSULE PO ×2 (09:34→20:52)
--- NOTE | 2020-10-29 11:36 | PCDIET ---
Nutrition Follow-Up Complete: Nutrition Diagnosis: Inadequate oral intake related to decreased appetite and altered taste as evidenced by minimal intake x 1 week with presumed weight loss, per patient. Nutrition Goal: Patient to consume 50% of meals/supplements or greater. Goal met. Patient has consumed an average of 67% of meals since 10/26/20 on regular diet. Spoke with patient via phone due to COVID precautions. Patient reports taking the Frozen Nutritional Treat which is being provided twice daily and denies c/o or concerns. Last recorded weight is 76 kg which is slightly increased from last review. Bowel Motility: Last documented BM on 10/26/20. Patient continues on Colace, Miralax, and Senna. Labs Reviewed: WBC (13.5), RBC (2.96), Hgb (8.4), Hct (26.0) Meds Noted: Colace, Atrovent, Xopenex, Protonix, Miralax, Senna Additional Notes: No documented skin breakdown. Will continue to monitor with same goal. Nutrition Monitoring and Evaluation: Follow up every 5 days.
--- NOTE | 2020-10-29 14:05 | PC.NURSE ---
Dr. Urrutia ordered GI consult- no covering GI doctor for today- MD informed
--- NOTE | 2020-10-29 14:17 | PM.IMPN ---
Progress Note: A&P Assessment and Plan (1) Bilateral pneumonia: Code(s): J18.9 - Pneumonia, unspecified organism Status: Acute Assessment and Plan: POSTIVE COVID PCR 10/17/20 - Continue Airvo and wean as tolerated - Continue ceftriaxone, azithromycin, lovenox, dexamethosone and will extend remdesivir by another 5 days received convalescent plasma 10/22 - consider toxcilizum if CRP is over 7.5 - Wean o2 as tolerated will try to lower the flow because of underlying pneumomediastinum and pneumothorax Avoid BiPAP 10/26/2020 Clinically much better, will continue with oxygen support. 10/28/20 this is late note plan was discharge home yesterday but was held due to conscern for dropping hgb. 10/27/20 18:14 patient is sitting in the chair states feeling much better patient was diagnosed with a COVID 19 on 10/17 and started on dexamethasone on 10/17 , remdesivir on 10/17, completed 10 days course on 10/26 and ceftriaxone and azithromycin on 10/17, after 6 days the abx were stopped, also received Convalescent plasma given on 10/22. patient remains clinically stable, afebrile and on 4 L of oxygen, will discuss tomorrow for discharge planning. 10/420 patient was doing very well clinically and had no complaint of shortness of breath is oxygen requirement was at the baseline plan was to discharge the patient home however it was found that patient H&H dropped from 9.5 on 10/26 to 7.9 on 10/27 and there was complaints of black stool. will monitor and have GI consult the patient for further recommendations. patient remains clinically stable. (2) COVID: Code(s): U07.1 - COVID-19 Status: Acute Assessment and Plan: See above (3) Acute respiratory failure with hypoxia: Code(s): J96.01 - Acute respiratory failure with hypoxia Status: Acute Assessment and Plan: 2/2 to above -wean o2 as tolerated 10/26/2020 Will continue with oxygen support, wean off as tolerated (4) Elevated lactic acid level: Code(s): R79.89 - Other specified abnormal findings of blood chemistry Status: Acute Assessment and Plan: Resolved (5) Hypertension: Code(s): I10 - Essential (primary) hypertension Status: Acute Assessment and Plan: Last bp 121/58 - patient used to be on amlodipine but stop doing this as he is doing holistic medicine and taking apple cider vinegar to treat his hypertension (6) Polio: Code(s): A80.9 - Acute poliomyelitis, unspecified Status: Acute Assessment and Plan: hx of polio with right leg weakness (7) Elevated LFTs: Code(s): R79.89 - Other specified abnormal findings of blood chemistry Status: Acute Assessment and Plan: Likely due to COVID -monitor -ruq us with stones but no signs of acute Cholecystitis or choledocholithiasis on imaging or exam. Patient is eating and drinking - hepatitis panel negative - trending down (8) Sepsis: Code(s): A41.9 - Sepsis, unspecified organism Status: Acute Assessment and Plan: Due to above improving (9) Pneumonia due to COVID-19 virus: Code(s): U07.1 - COVID-19; J12.82 - Pneumonia due to coronavirus disease 2019 Status: Acute Assessment and Plan: As above (10) Pneumomediastinum: Code(s): J98.2 - Interstitial emphysema Status: Acute Assessment and Plan: noted in the CTA 10/22 Likely related to barotrauma Repeat chest x-ray today with stable finding Continue to monitor x-ray (11) Pneumothorax: Code(s): J93.9 - Pneumothorax, unspecified Status: Acute Assessment and Plan: noted that x-ray 10/23 repeat this afternoon with stable size. repeat x-ray chest this morning on 10/24 with stable apical pneumothorax Subjective Date/time seen: 10/28/20 this is late note plan was discharge home yesterday but was held due to conscern for dropping h
--- NOTE | 2020-10-29 14:28 | P.PNIM_ITS ---
Progress Note: A&P Assessment and Plan (1) Bilateral pneumonia: Code(s): J18.9 - Pneumonia, unspecified organism Status: Acute Assessment and Plan: POSTIVE COVID PCR 10/17/20 - Continue Airvo and wean as tolerated - Continue ceftriaxone, azithromycin, lovenox, dexamethosone and will extend remdesivir by another 5 days received convalescent plasma 10/22 - consider toxcilizum if CRP is over 7.5 - Wean o2 as tolerated will try to lower the flow because of underlying pneumomediastinum and pneumothorax Avoid BiPAP 10/26/2020 Clinically much better, will continue with oxygen support. 10/28/20 this is late note plan was discharge home yesterday but was held due to conscern for dropping hgb. 10/29/20 14:28 10/27/20 18:14 patient is sitting in the chair states feeling much better patient was diagnosed with a COVID 19 on 10/17 and started on dexamethasone on 10/17 , remdesivir on 10/17, completed 10 days course on 10/26 and ceftriaxone and azithromycin on 10/17, after 6 days the abx were stopped, also received Convalescent plasma given on 10/22. patient remains clinically stable, afebrile and on 4 L of oxygen, will discuss tomorrow for discharge planning. 10/420 patient was doing very well clinically and had no complaint of shortness of breath is oxygen requirement was at the baseline plan was to discharge the patient home however it was found that patient H&H dropped from 9.5 on 10/26 to 7.9 on 10/27 and there was complaints of black stool. will monitor and have GI consult the patient for further recommendations. patient remains clinically stable. 10/29 today patient remains clinically stable he has no complaint of chest, palpation, or dizziness, he has not noticed any rectal bleeding, but has not had bowel movement today, hemoglobin is 8.4, stool Hemoccult is ordered, GI is consulted but unable to see the patient today will see them tomorrow and further recommendation to follow, in terms of COVID-19 patient remains clinically stable he is requiring 3 L of oxygen which is baseline, will recheck hemoglobin tomorrow, will have GI see the patient and further recommendation to follow (2) COVID: Code(s): U07.1 - COVID-19 Status: Acute Assessment and Plan: See above (3) Acute respiratory failure with hypoxia: Code(s): J96.01 - Acute respiratory failure with hypoxia Status: Acute Assessment and Plan: 2/2 to above -wean o2 as tolerated 10/26/2020 Will continue with oxygen support, wean off as tolerated (4) Elevated lactic acid level: Code(s): R79.89 - Other specified abnormal findings of blood chemistry Status: Acute Assessment and Plan: Resolved (5) Hypertension: Code(s): I10 - Essential (primary) hypertension Status: Acute Assessment and Plan: Last bp 121/58 - patient used to be on amlodipine but stop doing this as he is doing holistic medicine and taking apple cider vinegar to treat his hypertension (6) Polio: Code(s): A80.9 - Acute poliomyelitis, unspecified Status: Acute Assessment and Plan: hx of polio with right leg weakness (7) Elevated LFTs: Code(s): R79.89 - Other specified abnormal findings of blood chemistry Status: Acute Assessment and Plan: Likely due to COVID -monitor -ruq us with stones but no signs of acute Cholecystitis or choledocholithiasis on imaging or exam. Patient is eating and drinking - hepatitis panel negative - trending murtaza
[2020-10-29 17:03] LABS: IFOB Positive Control Positive; Immunochemical Fecal Occult Bl Negative (N)
[2020-10-29] MEDS: SENNOSIDES 8.6 MG TABLET PO (20:52)
[2020-10-30] VITALS (17 sets, daily range): BP systolic 122–135; BP diastolic 72–83; PULSE 87–118; RESP 16–20; TEMP 36–36.8; O2SAT 91–99
[2020-10-30] MEDS: IPRATROPIUM BR 0.02% INH SOLN 0.5 MG/2.5 ML VIAL INHALATION ×3 (03:11→13:38)
[2020-10-30 09:47] LABS: Hematocrit 25.8 % (42.0-52.0); Hemoglobin 8.5 g/dL (14.0-18.0); Mean Corpuscular HGB Conc 32.9 g/dl (32-36); Mean Corpuscular Hemoglobin 28.2 pg (26-34); Mean Corpuscular Volume 85.7 fl (80-100); Mean Platelet Volume 9.6 fl (7.4-10.4); Platelet Count Result 284 k/mm3 (150-375); Red Blood Count 3.01 M/mm3 (4.6-6.20); Red Cell Distribution Width 19.6 % (11.5-14.5); White Blood Count 10.5 K/mm3 (4.5-10.0)
[2020-10-30] MEDS: DOCUSATE SODIUM 100 MG CAPSULE PO (09:55)
[2020-10-30] MEDS: ENOXAPARIN 40 MG/0.4 ML SYRINGE SUB-Q (09:55)
[2020-10-30] MEDS: PANTOPRAZOLE SODIUM IV 40 MG VIAL IV PUSH (09:55)
[2020-10-30] MEDS: polyethylene glycoL 3350 17 GM POWD.PACK PO (09:55)
[2020-10-30 09:59] LABS: Alanine Aminotransferase 28 U/L (4-50); Albumin Level 2.6 g/dL (3.5-5.1); Alkaline Phosphatase 80 U/L (38-126); Anion Gap 3 mmol/L (8-16); Aspartate Amino Transferase 26 U/L (17-59); Bilirubin,Total 0.6 mg/dL (0.2-1.3); Blood Urea Nitrogen 9 mg/dL (9-20); Calcium 8.4 mg/dL (8.4-10.2); Carbon Dioxide 23 mmol/L (22-30); Chloride 107 mmol/L (98-107); Estimated CRCL calculation 86 ml/min; Estimated Glomerular Filt Rate > 60; Glucose 125 mg/dL (65-110); Magnesium 1.9 mg/dL (1.6-2.3); Potassium 4.4 mmol/L (3.4-5.0); Sodium 133 mmol/L (137-145)
--- NOTE | 2020-10-30 13:29 | PM.DS ---
DS: Admitting Diagnosis Admitting Diagnosis Chief Complaint: Shortness of breath. DS: Discharge Diagnosis Discharge Diagnosis (1) Bilateral pneumonia: Code(s): J18.9 - Pneumonia, unspecified organism Status: Acute Assessment and Plan: POSTIVE COVID PCR 10/17/20 - Continue Airvo and wean as tolerated - Continue ceftriaxone, azithromycin, lovenox, dexamethosone and will extend remdesivir by another 5 days received convalescent plasma 10/22 - consider toxcilizum if CRP is over 7.5 - Wean o2 as tolerated will try to lower the flow because of underlying pneumomediastinum and pneumothorax Avoid BiPAP 10/26/2020 Clinically much better, will continue with oxygen support. 10/28/20 this is late note plan was discharge home yesterday but was held due to conscern for dropping hgb. 10/29/20 14:28 10/27/20 18:14 patient is sitting in the chair states feeling much better patient was diagnosed with a COVID 19 on 10/17 and started on dexamethasone on 10/17 , remdesivir on 10/17, completed 10 days course on 10/26 and ceftriaxone and azithromycin on 10/17, after 6 days the abx were stopped, also received Convalescent plasma given on 10/22. patient remains clinically stable, afebrile and on 4 L of oxygen, will discuss tomorrow for discharge planning. 10/420 patient was doing very well clinically and had no complaint of shortness of breath is oxygen requirement was at the baseline plan was to discharge the patient home however it was found that patient H&H dropped from 9.5 on 10/26 to 7.9 on 10/27 and there was complaints of black stool. will monitor and have GI consult the patient for further recommendations. patient remains clinically stable. 10/29 today patient remains clinically stable he has no complaint of chest, palpation, or dizziness, he has not noticed any rectal bleeding, but has not had bowel movement today, hemoglobin is 8.4, stool Hemoccult is ordered, GI is consulted but unable to see the patient today will see them tomorrow and further recommendation to follow, in terms of COVID-19 patient remains clinically stable he is requiring 3 L of oxygen which is baseline, will recheck hemoglobin tomorrow, will have GI see the patient and further recommendation to follow (2) COVID: Code(s): U07.1 - COVID-19 Status: Acute Assessment and Plan: See above (3) Acute respiratory failure with hypoxia: Code(s): J96.01 - Acute respiratory failure with hypoxia Status: Acute Assessment and Plan: 2/2 to above -wean o2 as tolerated 10/26/2020 Will continue with oxygen support, wean off as tolerated (4) Elevated lactic acid level: Code(s): R79.89 - Other specified abnormal findings of blood chemistry Status: Acute Assessment and Plan: Resolved (5) Hypertension: Code(s): I10 - Essential (primary) hypertension Status: Acute Assessment and Plan: Last bp 121/58 - patient used to be on amlodipine but stop doing this as he is doing holistic medicine and taking apple cider vinegar to treat his hypertension (6) Polio: Code(s): A80.9 - Acute poliomyelitis, unspecified Status: Acute Assessment and Plan: hx of polio with right leg weakness (7) Elevated LFTs: Code(s): R79.89 - Other specified abnormal findings of blood chemistry Status: Acute Assessment and Plan: Likely due to COVID -monitor -ruq us with stones but no signs of acute Cholecystitis or choledocholithiasis on imaging or exam. Patient is eating and drinking - hepatitis panel negative - trending down (8) Sepsis: Code(s): A41.9 - Sepsis, unspecified organism Status: Acute Assessment and Plan: Due to above improving (9) Pneumonia due to COVID-19 virus: Code(s): U07.1 - COVID-19; J12.82 - Pneumonia due to coronavirus disease 2019 Status: Acute Assessment and Plan: As abo
--- NOTE | 2020-10-30 17:22 | PC.NURSE ---
DISCHARGED HOME- PERSONAL BELONGINGS RETURNED TO PT
== END 2020-10-30 17:12 | disposition home health service (06) | DRG 720 ==
LOC: ANHED 14:36 → ANHIMU 16:05
PROVIDERS: Family Medicine; Internal Medicine; Physician Assistant; Admitting Provider Internal Medicine; Emergency Provider Emergency Medicine; PCP Family Medicine; Visit Provider Internal Medicine
DX: A41.89 Other specified sepsis (principal); U07.1 COVID-19; J12.82 Pneumonia due to coronavirus disease 2019; J96.01 Acute respiratory failure with hypoxia; Z86.12 Personal history of poliomyelitis; I10 Essential (primary) hypertension; Z87.891 Personal history of nicotine dependence; K21.9 Gastro-esophageal reflux disease without esophagitis; R74.02 Elevation of levels of lactic acid dehydrogenase [LDH]; R79.89 Other specified abnormal findings of blood chemistry; J98.2 Interstitial emphysema; J95.859 Other complication of respirator [ventilator]; Y84.8 Other medical procedures as the cause of abnormal reaction of the patient, or of later complication, without mention of misadventure at the time of the procedure; Y92.230 Patient room in hospital as the place of occurrence of the external cause; J94.8 Other specified pleural conditions; J95.811 Postprocedural pneumothorax; R71.0 Precipitous drop in hematocrit
CPT/HCPCS: 36415; 36430; 36569; 36600; 71045; 71275; 76705; 80048; 80053; 80074; 80076; 81001; 82274; 82375; 82565; 82607; 82728; 82746; 82805; 83036; 83050; 83540; 83550; 83605; 83615; 83690; 83735; 84443; 84460; 84466; 84484; 85014; 85018; 85025; 85027; 85380; 85610; 85730; 86140; 86900; 86901; 87040; 87070; 87102; 87106; 87107; 87205; 87206; 93005; 94002; 94003; 94618; 94640; 96374; 97110; 97116; 97161; 97165; 97530; 97535; 99285; A9270; C1751; C9113; C9803; J0456; J0696; J1100; J1650; J7040; J7050; P9059; Q9967; U0003; U0005

== ENCOUNTER 2020-12-15 14:49 | Outpatient (CLI) | payer OTHER, SELFPAY ==
--- NOTE | ~2020-12-15 | XR_ITS ---
EXAMINATION: XR hip RT min 2V EXAM DATE: 12/15/2020 15:35 INDICATION: Right hip pain. TECHNIQUE: Right hip frontal, crosstable lateral and 'frog-leg' projections for interpretation. The re is no prior study for comparison. FINDINGS: There is shallow acetabula, with abnormally positioned right hip which is approximately 60% uncovered from the acetabular. There is abnormal flattened shape, appearance to the right femoral he ad. Appearance is consistent with development dysplasia of the hip. There is moderate to severe right hip osteoarthritis, could be secondary to this congenital finding. Subchondral cystic formation from the osteoarthritis. No definite underlying avascular necrosis. There are no acute fractures identifi ed. IMPRESSION: DDH, osteoarthritis. Reviewed, dictated and finalized at location B. IMPRESSION: DDH, osteoarthritis.
--- NOTE | ~2020-12-15 | XR_ITS ---
EXAMINATION: XR knee RT 3V EXAM DATE: 12/15/2020 15:35 INDICATION: Right knee pain. TECHNIQUE: Three projections of the right knee. There is no prior study for comparison. FINDINGS: There is femoral hardware with a laterally positioned plate and multiple supporting screws. Evidence of a healed right femoral distal metaphyseal fracture. Some swelling suspected along the di stal aspect of the right thigh medially. There are no acute fractures identified. There is moderate t o severe patellofemoral compartment osteoarthritis likely secondary to prior injury. There is mild ti biofemoral compartment primary osteoarthritis. No sizable joint effusion. IMPRESSION: 1. Femoral hardware bridging healed right distal metaphyseal fracture. 2. Osteoarthritis. Reviewed, dictated and finalized at location B.
--- NOTE | ~2020-12-15 | XR_ITS ---
EXAMINATION: XR ankle RT min 3V EXAM DATE: 12/15/2020 15:35 INDICATION: No known recent injury provided at this time. Pain of the right ankle. pt has hx of polio ,could not flex or bend ankle in certain positions. TECHNIQUE: Right ankle frontal, lateral and oblique projections obtained and reviewed. There is no p rior study for comparison. FINDINGS: There is abnormal positioning to the right foot. The mortise appears intact. No talar oste ochondral defect. There is mild polyarticular midfoot primary osteoarthritis. There are no acute frac tures identified. IMPRESSION: 1. Abnormally right foot positioning. 2. Mild midfoot osteoarthritis. 3. No acute findings. Reviewed, dictated and finalized at location B.
== END 2020-12-15 14:50 | disposition home or self-care (01) ==
LOC: ANHIMG 14:55
PROVIDERS: PCP Family Medicine; Visit Provider Family Medicine
DX: M19.071 Primary osteoarthritis, right ankle and foot (principal); M17.11 Unilateral primary osteoarthritis, right knee
CPT/HCPCS: 73502; 73562; 73610

== ENCOUNTER 2023-03-14 15:30 | Outpatient (RCR) | payer OTHER, SELFPAY ==
--- NOTE | 2022-11-02 09:57 | PCPTNOTE ---
Patient called & cancelled scheduled evaluation this date due to car troubles
--- NOTE | 2023-02-22 10:33 | PTOPEVAL1 ---
Assessment and note entered by Navarro Melgar Evaluation Information Assessment Status Evaluation Diagnosis unequal limb length Onset 02/01/23 Subjective Information Pt. reports that he suffered from polio as a child which affected the right l.e. He reports that about 6 years ago he suffered a fall and broke the right l.e. He reports the injury worsened his leg length discrepency. He reports that he was referred to PT due to increasing weakness in the right leg. Pt. reports that he is currently able to walk with a walker and can walk for very short distances. He reports that he lives in an apartment and is able to get around with his wc and walker without wheels. He reports that he has assistance with getting into the community, but is able to complete some short distance driving. He reports that the developing weakness in the right leg is making walking more difficult and his goal is to strengthen the right l.e. Reported Pain Level Pain Score 0: Self Report Assessment PT Clinical Summary Pt. 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 Pt. has not addressed right l.e. mobility and strength in the recent years resulting in impaired strength, impaired balance, impaired gait and impaired right l.e. ROM. Continued skilled PT is indicated in order to improve these areas to allow for improved funcitonal mobility and safety with IADL's. The doctor will be contacted reguarding assessment from an clinical nursing assistant to determine if a lift and ankle support could benefit stability with ambulation. Plan of Care Interventions Gait Training,Neuro Re-education,Patient/Caregiver Educati,Therapeutic Activities,Therapeutic Exercise PT Services Indicated Yes Treatment Frequency and 2x/week x 8 visits Duration These treatments will address the objective and functional deficits as defined above. The patient will be advanced safely and appropriately in order for the patient to progress towards his/her prior level of function. Additional exercises will be introduced and as well as a comprehensive home exercise program upon discharge, if needed, ?to ensure carryover of functional gains achieved in the clinic. This treatment plan has been reviewed and agreement upon by the patient.
--- NOTE | 2023-02-22 10:39 | OPREHPOC ---
Outpatient Therapy Plan of Care This is a Multidisciplinary Plan of Care that may contain components documented by all disciplines (PT, OT, and ST.) PT Problem 1 PT Problem #1 Knowledge Deficit PT Goal 1 Goal Pt. will be independent with a HEP addressing l.e. strength and mobility Target Visit 2 PT Problem 2 PT Problem #2 Impaired Range of Motion PT Goal 1 Goal -Pt. will demonstrate 20 degrees right hip IR passive ROM -Pt. will increased right hamstring flexibility to 20 degrees from full knee extension on the right with the 90/90 test Target Visit 8 PT Problem 3 PT Problem #3 Impaired Strength PT Goal 1 Goal -Pt. will demonstrate 3+/5 or greater right hip abduction, extension and flexion strength Target Visit 8 PT Problem 4 PT Problem #4 Impaired Functional Mobil PT Goal 1 Goal Pt. will improve his tinetti score by 3 points or greater indicating signficant functional improvement and improved safety with IADL's. Target Visit 8
--- NOTE | 2023-02-27 14:34 | PCPTNOTE ---
Pt. canceled 02/27/23 appointment noting that he was sick.
--- NOTE | 2023-03-16 17:14 | PCPTNOTE ---
Patient cancelled due to scheduling conflict.
--- NOTE | 2023-03-23 09:40 | PCPTNOTE ---
Mr. Wilkerson contacted the clinic stating that he is out of town and unable to attend therapy on this date. Navarro Melgar, MPT
--- NOTE | 2023-04-06 14:02 | PCPTNOTE ---
Patient No Show for today's Re-Evaluation Note.
--- NOTE | 2023-04-13 14:12 | PTOPDC ---
Assessment and note entered by Jai Shelton, PT Evaluation Information Assessment Status Discharge - Pt Not Present Diagnosis unequal limb length Onset 02/01/23 Subjective Information Pt. reports that he suffered from polio as a child which affected the right l.e. He reports that about 6 years ago he suffered a fall and broke the right l.e. He reports the injury worsened his leg length discrepancy. He reports that he was referred to PT due to increasing weakness in the right leg. Pt. reports that he is currently able to walk with a walker and can walk for very short distances. He reports that he lives in an apartment and is able to get around with his wc and walker without wheels. He reports that he has assistance with getting into the community, but is able to complete some short distance driving. He reports that the developing weakness in the right leg is making walking more difficult and his goal is to strengthen the right l.e. Assessment PT Clinical Summary Patient was a No Show for today's appointment. He will be discharged at this time for his 4th consecutive cancel/no show per clinic policy. Please refer to last treatment note for discharge status. Plan of Care PT Services Indicated Yes
== END 2023-04-13 14:37 | disposition home or self-care (01) ==
LOC: ANHPT 15:30
PROVIDERS: PCP Physician Assistant; Visit Provider Physician Assistant
DX: M21.70 Unequal limb length (acquired), unspecified site (principal)
CPT/HCPCS: 97110; 97161; 97530; 99199

== ENCOUNTER 2023-07-02 15:57 | Emergency (ER) | payer OTHER, SELFPAY ==
--- NOTE | ~2023-07-02 | XR_ITS ---
EXAM: XR knee RT 3V DATE: 07/02/2023 16:42 HISTORY: rt knee pain s/p fall yesterday polio pt . COMPARISON: None available. FINDINGS: Uncomplicated screw and plate fixation of the distal right femur. Old distal right femoral fracture healed in mild deformity. Decreased mineralization. No fracture or dislocation. No lytic or blastic lesion. Moderate right knee osteoarthritis. No erosion or periosteal change. Small-volume demetria int fluid. IMPRESSION: No acute osseous finding in the right knee. No radiographic evidence of hardware related complication. Reviewed, dictated and finalized at location K. IMPRESSION: No acute osseous finding in the right knee. No radiographic evidenc e of hardware related complication.
--- NOTE | ~2023-07-02 | XR_ITS ---
EXAM: XR foot RT min 3V DATE: 07/02/2023 16:42 HISTORY: rt 2nd toe pain s/p fall yesterday polio pt . COMPARISON: None available. FINDINGS: Evaluation limited by nonstandard positioning and curled/overlapping toes. Decreased legal instruments examiner alization. No fracture or dislocation. No lytic or blastic lesion. Joint spaces are maintained. No er osion or periosteal change. Soft tissues within normal limits. IMPRESSION: Osteopenia. No definite acute osseous finding in the right foot. Reviewed, dictated and finalized at location K.
[2023-07-02 16:10] VITALS: BP 156/106; PULSE 78; RESP 16; TEMP 36.5; O2SAT 99
== END 2023-07-02 17:45 | disposition home or self-care (01) ==
PROVIDERS: Emergency Provider Nurse Practitioner; PCP Physician Assistant
DX: S80.01XA Contusion of right knee, initial encounter (principal); S90.31XA Contusion of right foot, initial encounter; W19.XXXA Unspecified fall, initial encounter; I10 Essential (primary) hypertension; Z86.73 Personal history of transient ischemic attack (TIA), and cerebral infarction without residual deficits; E78.5 Hyperlipidemia, unspecified
CPT/HCPCS: 73562; 73630; 99214; G0463